=== PATIENT | female | born 1975 ===

== ENCOUNTER 2020-01-28 13:55 | Outpatient (REF) | payer OTHER, SELFPAY ==
--- NOTE | 2020-01-28 | MM_ITS ---
EXAMINATION: MM DIAGNOSTIC DIGITAL BREAST TOMOSYNTHESIS, BILATERAL US DIAGNOSTIC ULTRASOUND BREAST, BILATERAL CLINICAL INFORMATION: Chronic bilateral milky discharge right greater than left for years. The lifetime risk of breast cancer based on the Tyrer-Cuzick Model is 7%. COMPARISON: Mammography: 04/02/2018, 10/17/2015; bilateral breast ultrasound 04/02/2018, MRI brain 08/14/2018. TECHNIQUE: Digital breast tomosynthesis is performed in both the craniocaudal and mediolateral oblique views along with computer-aided detection (CAD). Synthesized 2D images are generated from the tomosynthesis. Additional exaggerated right CC view is provided. Targeted bilateral breast ultrasound is performed retroareolar and periareolar bilateral breasts. Grayscale imaging and color Doppler are performed. FINDINGS: There are scattered areas of fibroglandular density (ACR BI-RADS breast composition Category b). Parenchymal pattern is similar to prior studies. There is low left axillary tail node again demonstrated. Neither breast shows interval mass or architectural abnormality or abnormal calcifications. No interval duct ectasia. Bilateral targeted breast ultrasound demonstrates no cystic or solid mass or architectural abnormality or focal duct ectasia. Results are discussed with the patient at time of visit. Patient's chronic bilateral bulky nipple discharge may be related to systemic cause. 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 IMPRESSION: 1. No mammographic evidence of malignancy. No significant changes from prior studies. 2. Unremarkable bilateral targeted breast ultrasound. ASSESSMENT: BI-RADS 1: Negative RECOMMENDATION: 1. Patient should be managed based on the clinical impression. Recommend correlation with laboratories for systemic endocrine etiology of bilateral nipple discharge. 2. Otherwise, routine annual screening mammography. This patient's information was entered into a reminder system with a target due date for their next mammogram.
== END 2020-01-28 13:56 | disposition home or self-care (01) ==
LOC: HO.MAMMO 13:55
PROVIDERS: PCP Internal Medicine; Visit Provider Internal Medicine
DX: N64.52 Nipple discharge (principal)
CPT/HCPCS: 76642; 77062; 77066; 78013

== ENCOUNTER 2020-03-09 15:30 | Outpatient (REF) | payer OTHER, SELFPAY | END 2020-03-09 15:31 | disposition home or self-care (01) | LOC: HO.LAB 15:30 | PROVIDERS: PCP Internal Medicine; Visit Provider Surgery | DX: L72.0 Epidermal cyst (principal); Z79.899 Other long term (current) drug therapy | CPT/HCPCS: 11402; 88307 ==

== ENCOUNTER 2020-03-21 14:18 | Emergency (ER) | payer OTHER, SELFPAY ==
[2020-03-21 15:04] VITALS: BP 116/62; PULSE 72; RESP 20; TEMP 36.9; O2SAT 97; BMI 28.2
--- NOTE | 2020-03-21 15:30 | XR_ITS ---
EXAMINATION: XR FOOT , RIGHT CLINICAL INFORMATION: Pain. Injury. COMPARISON: Previous ankle x-ray May 2019 TECHNIQUE: AP, lateral, and oblique views of the right foot. FINDINGS: Bone alignment is normal. No acute fracture or dislocation is seen. There is an old healed fracture of the distal fibular shaft. There are degenerative changes at the anterior tibiotalar joint. There is a plantar calcaneal spur. XR/XR foot RT min 3V IMPRESSION: No acute fracture is seen.
--- NOTE | 2020-03-21 15:39 | ED_ITS ---
HPI - Extremity Injury (Lower) General Chief Complaint: Extremity Injury, Lower Stated Complaint: foot injury Time Seen by Provider: 03/21/20 15:16 Source: patient Mode of arrival: ambulatory Limitations: no limitations History of Present Illness HPI Narrative: Presenting ambulatory with limp with complaint of pain to the right foot after stepping the foot against door/furniture at home. Occurred prior to arrival. No other injury. No fall. No ankle or knee pain. Onset (ago): minute(s) Injury: Right: foot Place: home Relieving factors: nothing Exacerbating factors: nothing Context: direct blow Other symptoms: none Treatments prior to arrival: cold therapy Related Data Home Medications Medication Instructions Recorded Confirmed butalbital 25 mg-acetaminophen 325 2 tab PO Q4H PRN 03/03/20 03/13/20 mg tablet escitalopram oxalate 10 mg tablet 10 mg PO DAILY 03/03/20 03/13/20 Previous Rx's Medication Instructions Recorded ciclopirox 0.77 % topical cream 1 applic TOPICAL BID 28 Days #30 g 03/03/20 cyclobenzaprine 10 mg tablet 10 mg PO BEDTIME 14 Days #14 tab 03/03/20 ibuprofen 800 mg tablet 800 mg PO BID PRN 10 Days #20 tab 03/03/20 ibuprofen 800 mg PO Q8H PRN #20 tab 03/21/20 Allergies Allergy/AdvReac Type Severity Reaction Status Date / Time No Known Allergies Allergy Verified 03/01/20 06:23 [No Known Allergies*] Review of Systems Review of Systems: Constitutional: No Weight loss, No Fever, No Chills, No Night Sweats, No Fatigue, No Malaise ENT/Mouth: No Hearing loss, No Ear Pain, No Nasal Congestion, No Sinus Pain Eyes: No Eye Pain, No Swelling, No Redness, No Foreign Body, No Discharge, No Vision Changes Cardiovascular: No Chest Pain, No SOB, No Dyspnea on Exertion, No Orthopnea, No Edema, No Palpitations Respiratory: No Cough, No Sputum, No Wheezing, No Smoke Exposure, No Dyspnea Musculoskeletal: No joint pain, No Myalgias, No Joint Swelling Skin: No Skin Lesions, No rash Neuro: No Weakness, No Numbness, No Paresthesias Psych: No Social Issues Heme/Lymph: No Bruising, No Bleeding,No Lymphadenopathy Endocrine: No Polyuria, No Polydipsia, No Temperature Intolerance [facility] Past Medical History Medical History (Updated 03/21/20 @ 16:12 by Cristóbal Arzate NP) Acute carpal tunnel syndrome COVID-19 ruled out Nail fungus Surgical History History of tubal ligation History of umbilical hernia repair Family History Family History Father Medical history unknown Mother Uterine cancer Maternal Aunt Hypertension Maternal Grandfather Hypertension Diabetes Social History Social History Advance Directives: No Advance Directives Information Provided: Yes Physical Exam Vital Signs: Vital Signs: Last Vital Signs Temp 98.4 F 03/21/20 15:04 Pulse 72 03/21/20 15:04 Resp 20 03/21/20 15:04 BP 116/62 03/21/20 15:04 Pulse Ox 97 03/21/20 15:04 Body Mass Index 28.2 Reviewed Const: General: cooperative and healthy appearing; No acute distress or intoxicated appearing Nutritional Appearance: average body habitus Orientation/consciousness: patient oriented x3 Chest: Chest palpation & inspection: normal inspection of the chest Resp: Effort & Inspection: normal respiratory effort Cardio: Jugular venous distension: no JVD Skin: General skin exam: no rashes or lesions noted Neuro: General: patient oriented x3 Extrem: Other: Dorsum of the right foot distally at the mid to distal foot there is some ecchymosis and mild swelling. General: Yes normal to inspection MDM - Extremity Injury (Lower) Medical Records Attestation: I reviewed the patient's medical records. Lab Data Attestation: I reviewed the patient's lab results. Imaging Data Right foot x-ray: Attestation: I personally reviewed and interpreted this imaging study as follows: Radiologist's impression: Report reviewed from radiology down time she given to me by read text Report read of right foot x-ray by Dr. Pardo as negative for acute fracture Discharge Plan Discharge Clinical Impression: Contusion of foot Qualifiers: Encounter type: initial encounter Laterality: right Qualified Code(s): S90.31XA - Contusion of right foot, initial encounter Patient Disposition: Home, Self-Care Instructions: Foot Contusion (ED) Additional Instructions: The x-ray of the foot did not show any acute fracture You have a bruise to the foot Elevate Ice Ibuprofen for pain discomfort as prescribed Use foot wrap/shoe as given Return if any concerns worsening symptoms Thank you Prescriptions: New ibuprofen 800 mg tablet 800 mg PO Q8H PRN (Reason: pain) Qty: 20 RF: 0 No Action butalbital-acetaminophen 25-325 mg tablet 2 tab PO Q4H PRNRF: 0 escitalopram oxalate 10 mg tablet 10 mg PO DAILY RF: 0 ibuprofen [IBU] 800 mg tablet 800 mg PO BID PRN (Reason: pain) 10 Days Qty: 20 RF: 0 cyclobenzaprine 10 mg tablet 10 mg PO BEDTIME 14 Days Qty: 14 RF: 0 ciclopirox 0.77 % cream 1 applic topical BID 28 Days Qty: 30 RF: 0 Referrals: Vianca Zelaya MD [Primary Care Provider] - 1 week Stand Alone Forms: Work/School Release Interventions: ED Discharge Assessment Last Done: 03/21/20 16:24 Discharge Date/Time: 03/21/20 16:25
== END 2020-03-21 16:25 | disposition home or self-care (01) ==
PROVIDERS: Emergency Provider Internal Medicine; PCP Internal Medicine
DX: S90.31XA Contusion of right foot, initial encounter (principal); M79.671 Pain in right foot; Y29.XXXA Contact with blunt object, undetermined intent, initial encounter; Y93.9 Activity, unspecified; Y92.009 Unspecified place in unspecified non-institutional (private) residence as the place of occurrence of the external cause; Y99.9 Unspecified external cause status; Z79.899 Other long term (current) drug therapy
CPT/HCPCS: 73630; 99283

== ENCOUNTER → 2020-03-22 15:45 | Outpatient (BNVA) | payer OTHER, SELFPAY | PROVIDERS: PCP Internal Medicine; Visit Provider Surgery | DX: L72.0 Epidermal cyst (principal); Z20.828 Contact with and (suspected) exposure to other viral communicable diseases | CPT/HCPCS: 99212 ==

== ENCOUNTER 2020-05-19 13:13 | Outpatient (REF) | payer OTHER, SELFPAY ==
--- NOTE | 2020-05-19 | MR_ITS ---
EXAMINATION: MR BRAIN WITHOUT AND WITH CONTRAST CLINICAL INFORMATION: Pituitary microadenoma. COMPARISON: Brain MRI 08/14/2018. TECHNIQUE: Multiplanar, multisequence imaging of the brain was performed before and after the intravenous administration of 4 mL of Gadavist. FINDINGS: There is an ill-defined focus of hypoenhancement within the right inferolateral aspect of the pituitary gland measuring approximately 4 mm but is less well-defined than on the prior exam from 08/14/2018. The overall morphology of the pituitary gland appears similar compared with prior. The posterior pituitary bright spot is present. The infundibulum is not abnormally thickened and inserts near the midline. The cavernous sinuses demonstrate symmetric enhancement. The optic apparatus appears normal. There is no acute infarction, hemorrhage, mass, or extra-axial fluid collection. The brain parenchyma signal appears normal. The ventricles are normal in size and configuration without evidence of hydrocephalus. The major arterial flow voids are preserved at the skull base. The orbital contents appear normal. MR/MR head/brain wo/w con IMPRESSION: The previously noted hypoenhancing lesion in the right inferolateral aspect of the pituitary gland is now less well-defined measuring approximately 4 mm, previously 5 mm. No new or acute intracranial findings.
== END 2020-05-19 13:14 | disposition home or self-care (01) ==
LOC: HO.MRI 13:13
PROVIDERS: Visit Provider Internal Medicine Endocrinology, Diabetes & Metabolism
DX: D35.2 Benign neoplasm of pituitary gland (principal)
CPT/HCPCS: 70553; A9585

== ENCOUNTER → 2020-07-29 14:27 | Outpatient (BNVA) | payer OTHER, SELFPAY | PROVIDERS: PCP Internal Medicine; Visit Provider Internal Medicine Endocrinology, Diabetes & Metabolism | DX: D35.2 Benign neoplasm of pituitary gland (principal); E55.9 Vitamin D deficiency, unspecified | CPT/HCPCS: 99212 ==

== ENCOUNTER 2020-08-04 17:01 | Emergency (ER) | payer OTHER, SELFPAY ==
--- NOTE | ~2020-08-04 | XR_ITS ---
EXAMINATION: XR ANKLE, RIGHT CLINICAL INFORMATION: Pain and swelling. History of old injury. COMPARISON: Right ankle 06/19/2019 TECHNIQUE: AP, lateral, and mortise views of the right ankle. FINDINGS: Previous is seen fracture of the distal fibula shows evidence of progressive healing of the fracture line remains partially radiolucent. There is endosteal healing of the fracture. No change in the alignment of the fracture fragments. Mild disuse osteopenia of the distal tibia and the talus. There is a corticated osseous fragment at the anterior ankle joint measuring about 6 mm there is likely an intra-articular loose body. This is apparent on the lateral view. No acute fracture or dislocation. Ankle mortise remains congruent. Large plantar calcaneal spur. XR/XR ankle RT min 3V IMPRESSION: 1. Healing fracture of the distal right fibula. 2. Intra-articular loose body of the anterior ankle joint. 3. No acute osseous abnormalities. 4. Large plantar calcaneal spur.
[2020-08-04 17:30] VITALS: BP 120/78; PULSE 86; RESP 18; TEMP 37.3; O2SAT 96; BMI 27.7
--- NOTE | 2020-08-04 20:14 | ED.EXTPRO ---
HPI - Extremity Problem General Chief complaint: Extremity Problem Stated complaint: leg pain Time Seen by Provider: 08/04/20 19:56 Related Data Home Medications Medication Instructions Recorded Confirmed butalbital 25 mg-acetaminophen 325 2 tab PO Q4H PRN 03/03/20 07/29/20 mg tablet escitalopram oxalate 10 mg tablet 10 mg PO DAILY 03/03/20 07/29/20 Previous Rx's Medication Instructions Recorded ciclopirox 0.77 % topical cream 1 applic TOPICAL BID 28 Days #30 g 03/03/20 cyclobenzaprine 10 mg tablet 10 mg PO BEDTIME 14 Days #14 tab 03/03/20 ibuprofen 800 mg tablet 800 mg PO BID PRN 10 Days #20 tab 03/03/20 ibuprofen 800 mg PO Q8H PRN #20 tab 03/21/20 cholecalciferol (vitamin D3) 50 50 mcg PO DAILY 30 Days #30 cap 07/29/20 mcg (2,000 unit) capsule ibuprofen 800 mg PO Q8H PRN #30 tab 08/04/20 Allergies Allergy/AdvReac Type Severity Reaction Status Date / Time No Known Allergies Allergy Verified 08/04/20 17:29 [No Known Allergies*] [facility] Past Medical History Medical History (Updated 08/04/20 @ 20:15 by Cristóbal Arzate NP) Acute carpal tunnel syndrome COVID-19 ruled out Hand pain, right Nail fungus Pituitary microadenoma Vitamin D deficiency Surgical History History of tubal ligation History of umbilical hernia repair Family History Family History Father Medical history unknown Mother Uterine cancer Maternal Aunt Hypertension Maternal Grandfather Hypertension Diabetes Social History Social History Alcohol intake: never Smoked in Last 30 Days: No Use of substances other than those prescribed or required for medical reasons: No Advance Directives: No Advance Directives Information Provided: No Physical Exam Vital Signs: Vital Signs: Last Vital Signs Temp 99.1 F 08/04/20 17:30 Pulse 86 08/04/20 17:30 Resp 18 08/04/20 17:30 BP 120/78 08/04/20 17:30 Pulse Ox 96 08/04/20 17:30 Body Mass Index 27.7 Course Reevaluation(s) Reevaluation #1: Chronic pain for surgery for past year since things, no acute findings on exam. Neurovascular intact, Homans negative. Pain more after long day on her feet and walking a lot. Will give her crutches for p.r.n. use and has orthopedic follow-up on the 15 of August. MDM - Extremity (Nontraumatic) Imaging Data Ankle x-ray: Radiologist's impression: [address] [id number] ReportSigned Patient: Xiao RajputMR#: [id number]: [id number]:[id number]/Sex: 45 / FADM Date: 08/04/20Loc: EDAttending Dr: Ordering Physician: Generic ED Physician Date of Service: 08/04/20 Procedure(s): XR ankle RT min 3V Accession Number(s): [id number] cc: Generic ED Physician~ EXAMINATION: XR ANKLE, RIGHT CLINICAL INFORMATION: Pain and swelling. History of old injury. COMPARISON: Right ankle 06/19/2019 TECHNIQUE: AP, lateral, and mortise views of the right ankle. FINDINGS: Previous is seen fracture of the distal fibula shows evidence of progressive healing of the fracture line remains partially radiolucent. There is endosteal healing of the fracture. No change in the alignment of the fracture fragments. Mild disuse osteopenia of the distal tibia and the talus. There is a corticated osseous fragment at the anterior ankle joint measuring about 6 mm there is likely an intra-articular loose body. This is apparent on the lateral view. No acute fracture or dislocation. Ankle mortise remains congruent. Large plantar calcaneal spur. XR/XR ankle RT min 3V IMPRESSION: 1. Healing fracture of the distal right fibula. 2. Intra-articular loose body of the anterior ankle joint. 3. No acute osseous abnormalities. 4. Large plantar calcaneal spur. Dictated By:WU PARK MDSigned By:<Electronically signed by WU PARK MD in OV>08/04/201912 DD/ [id number]/TT: Quality Systems Technician: JAYME Discharge Plan Discharge Clinical Impression: Chronic ankle pain Patient Disposition: Home, Self-Care Instructions: Arthralgia (ED) Additional Instructions: Follow-up with orthopedic doctor as planned Take ibuprofen alternated Tylenol as needed for pain discomfort Return if any concerns or worsening symptoms Thank you Prescriptions: New ibuprofen 800 mg tablet 800 mg PO Q8H PRN (Reason: pain) Qty: 30 RF: 0 No Action ibuprofen 800 mg tablet 800 mg PO Q8H PRN (Reason: pain) Qty: 20 RF: 0 butalbital-acetaminophen 25-325 mg tablet 2 tab PO Q4H PRNRF: 0 escitalopram oxalate 10 mg tablet 10 mg PO DAILY RF: 0 ibuprofen [IBU] 800 mg tablet 800 mg PO BID PRN (Reason: pain) 10 Days Qty: 20 RF: 0 cyclobenzaprine 10 mg tablet 10 mg PO BEDTIME 14 Days Qty: 14 RF: 0 ciclopirox 0.77 % cream 1 applic topical BID 28 Days Qty: 30 RF: 0 cholecalciferol (vitamin D3) 50 mcg (2,000 unit) capsule 50 mcg PO DAILY 30 Days Qty: 30 RF: 11 Referrals: Gary Tenorio MD [Physician] - 2 weeks Vianca Zelaya MD [Primary Care Provider] - 1 week Stand Alone Forms: Work/School Release
--- NOTE | 2020-08-04 20:40 | PC.NURSE ---
DENI GARCIA USE WALKING BOOT INSTEAD OF CRUTCHES.
== END 2020-08-04 20:41 | disposition home or self-care (01) ==
PROVIDERS: Emergency Provider Internal Medicine; PCP Internal Medicine
DX: G89.29 Other chronic pain (principal); M25.571 Pain in right ankle and joints of right foot
CPT/HCPCS: 73610; 99283; 99284

== ENCOUNTER → 2020-08-15 14:16 | Outpatient (BNVA) | payer OTHER, SELFPAY | PROVIDERS: PCP Internal Medicine; Visit Provider Physician Assistant | DX: S93.401D Sprain of unspecified ligament of right ankle, subsequent encounter (principal) | CPT/HCPCS: 99212 ==

== ENCOUNTER 2020-12-12 12:41 | Emergency (ER) | payer OTHER, SELFPAY ==
--- NOTE | ~2020-12-12 | XR_ITS ---
EXAMINATION: XR CHEST CLINICAL INFORMATION: Cough and headache. COMPARISON: None TECHNIQUE: Frontal view of the chest was obtained. FINDINGS: No significant abnormality is noted involving the heart, lungs, mediastinum, bony thorax or soft tissues. XR/XR chest 1V IMPRESSION: Unremarkable chest examination.
[2020-12-12 13:45] VITALS: BP 143/88; PULSE 84; RESP 16; TEMP 36.8; O2SAT 97; BMI 28.2
[2020-12-12 14:20] LABS: Strep A Nucleic Acid Negative (Negative)
--- NOTE | 2020-12-12 14:42 | ED.URI ---
HPI - URI/Sore Throat General Chief Complaint: Upper Respiratory Symptoms Stated Complaint: cough flu like symptoms Time Seen by Provider: 12/12/20 13:52 Source: patient Mode of arrival: ambulatory Limitations: no limitations History of Present Illness HPI Narrative: 45-year-old female presenting to the ED with complaints of 3 days of body aches, subjective fevers, chills, intermittent headaches, sore throat, nasal congestion/rhinorrhea and dry cough. Reports that she received 1 of her 2 COVID vaccines. Denies recent travel or sick contacts. Denies any measured fevers, dizziness, neck pain/stiffness, chest pain or shortness of breath, dyspnea on exertion, orthopnea, palpitations, nausea/vomiting/diarrhea/constipation, abdominal pain, back pain, dysuria, hematuria or any other symptoms complete to concerns at this time. MD elicited complaint: fever, cough, sore throat, rhinorrhea and nasal congestion Onset (ago): day(s) (Three days worse today) Consistency: constant and progressively worsening Severity: moderate Description of mucous: clear, watery and yellow Able to tolerate fluids by mouth: Yes Exacerbating factors: swallowing Relieving factors: nothing Associated symptoms: fever, chills, myalgias, headache, rhinorrhea, nasal congestion, sore throat and cough Treatments prior to arrival: none Related Data Home Medications Medication Instructions Recorded Confirmed butalbital 25 mg-acetaminophen 325 2 tab PO Q4H PRN 03/03/20 07/29/20 mg tablet escitalopram oxalate 10 mg tablet 10 mg PO DAILY 03/03/20 07/29/20 Previous Rx's Medication Instructions Recorded ciclopirox 0.77 % topical cream 1 applic TOPICAL BID 28 Days #30 g 03/03/20 cyclobenzaprine 10 mg tablet 10 mg PO BEDTIME 14 Days #14 tab 03/03/20 ibuprofen 800 mg tablet (IBU) 800 mg PO BID PRN 10 Days #20 tab 03/03/20 ibuprofen 800 mg tablet 800 mg PO Q8H PRN #20 tab 03/21/20 cholecalciferol (vitamin D3) 50 50 mcg PO DAILY 30 Days #30 cap 07/29/20 mcg (2,000 unit) capsule ibuprofen 800 mg tablet 800 mg PO Q8H PRN #30 tab 08/04/20 acetaminophen 500 mg tablet 1,000 mg PO QID PRN #14 tab 12/12/20 (Tylenol Extra Strength) albuterol sulfate 90 mcg/actuation 1 inh INHALATION QID PRN #8.5 g 12/12/20 aerosol inhaler azithromycin 250 mg tablet See Rx Instructions .ROUTE 12/12/20 .COMPLEX #6 tab codeine 10 mg-guaifenesin 100 mg/5 5 ml PO Q6H PRN #120 ml 12/12/20 mL oral liquid (Guaifenesin AC) ibuprofen 800 mg tablet 800 mg PO Q8H PRN #14 tab 12/12/20 Allergies Allergy/AdvReac Type Severity Reaction Status Date / Time No Known Allergies Allergy Verified 08/04/20 17:29 [No Known Allergies*] Review of Systems Review of Systems: Constitutional : Positive fevers/chills/fatigue/malaise ENT/Mouth : Positive sore throat/nasal congestion/rhinorrhea Eyes: No Discharge Cardiovascular : No Chest Pain, No SOB Respiratory : Positive Cough, No Sputum, No Wheezing, No Smoke Exposure, No Dyspnea Gastrointestinal : No Nausea, No Vomiting, No Diarrhea Genitourinary : No irregular bleeding, No Dysuria, No Urinary Frequency, No Hematuria, No Urinary Incontinence, No Urgency, No Flank Pain, Musculoskeletal : No Myalgia Skin : No rash Neuro : No Headache Yes all other systems are reviewed and are negative [facility] Past Medical History Attestation statement: The following information was validated with the patient. Medical History Acute carpal tunnel syndrome COVID-19 ruled out Hand pain, right Nail fungus Pituitary microadenoma Vitamin D deficiency Surgical History History of tubal ligation History of umbilical hernia repair Family History Family History Father Medical history unknown Mother Uterine cancer Maternal Aunt Hypertension Maternal Grandfather Hypertension Diabetes Social History Social History Alcohol intake: never Advance Directives: No Advance Directives Information Provided: No Patient : No Physical Exam Vital Signs: Vital Signs: Last Vital Signs Temp 98.3 F 12/12/20 13:45 Pulse 84 12/12/20 13:45 Resp 16 12/12/20 13:45 BP 143/88 H 08/23/21 13:45 Pulse Ox 97 12/12/20 13:45 Body Mass Index 28.2 vital signs have been reviewed as normal and appeared to be correct. Blood pressure mildly hypertensive 143/88 Heart rate normal. Respiration rate normal. Temperature normal. Oxygen saturation normal. Appearance: Alert. Oriented X3. No acute distress. Head: Normal external exam. Normocephalic. Atraumatic. Eyes: PERRLA. EOMI. Conjunctiva and sclera normal. Eyelids normal. ENT: EAC normal. TM's Normal. Posterior pharynx mildly erythematous. No exudate noted. Uvula midline. Moist mucous membranes. No trismus noted. No drooling noted. No muffled voice noted. Neck: Normal inspection. Neck supple. FROM. No adenopathy. Thyroid Normal. No meningeal signs. No neck mass noted. CVS: Normal heart rate and rhythm. Heart sound normal. Pulses normal throughout. No murmurs/rales/gallops. Respiratory: No respiratory distress. Painless inspiration. Breath sounds normal. No wheezes/rales/rhonchi noted. Chest nontender. No accessory muscle usage noted or decreased air movement noted. Back: Full range of motion noted. No rashes/lesion/induration/fluctuance or signs of infection noted. Skin: Skin warm and dry. Normal skin color. Normal skin turgor. No rashes/lesions/lacerations noted. Extremities: Extremities exhibit normal range of motion. Extremities nontender. Neuro: Oriented X 3. No motor deficit. No sensory deficit. Reflexes normal. Normal steady gait. No focal neuro deficits noted. Vascular: + radial pulses/+ 2 distal pedal pulses/+2 dorsalis pedis b/l. Normal cap refill. No cyanosis noted to upper extremity nails and lower extremity toes nails. Course Course Course Narrative: 45-year-old female presenting to the ED with complaints of 3 days of body aches, subjective fevers, chills, intermittent headaches, sore throat, nasal congestion/rhinorrhea and dry cough. Reports that she received 1 of her 2 COVID vaccines. Denies recent travel or sick contacts. Rapid strep negative. X-ray obtained and negative. COVID/RSV/flu pending at this time. Will DC home with antibiotics and symptomatic treatment and will call her if her results are positive within the next 2-4 hours. Along with instructions to follow-up with her primary care provider and to return if any new or worsening symptoms. Patient understands agrees with this plan. MDM - URI/Sore Throat Medical Records Attestation: I reviewed the patient's medical records. Lab Data Attestation: I reviewed the patient's lab results. Labs: Lab Results 12/12/20 Range/Units 14:00 S. pyogenes GrpA SCARLET Negative (Negative) Imaging Data Chest x-ray: Attestation: I personally reviewed and interpreted this imaging study as follows: Radiologist's impression: FINDINGS: No significant abnormality is noted involving the heart, lungs, mediastinum, bony thorax or soft tissues. XR/XR chest 1V IMPRESSION: Unremarkable chest examination. Discharge Plan Discharge Clinical Impression: Upper respiratory infection Patient Disposition: Home, Self-Care Instructions: Upper Respiratory Infection (ED) Additional Instructions: Based on your symptoms and history we have sent a COVID-19. Although your RESULT IS PENDING at this time. RESULTS should return within 2-4 hours. At this time you will be contacted with either NEGATIVE OR POSITIVE results. -Please wait until we contact you for your results. At this time you will be okay for discharge. Please plan for self quarantine for up to 14 days. Do not expose yourself to others. You may not go to work. If testing does come back negative you may return to activities as long as you are no longer having any symptoms for at least 3 days. Please continue to follow cold instructions and wash your hands frequently. You may take Tylenol as directed on the bottle for pain or fever. Patient seen in the emergency department on 12/12/2020 and should be excused from work until negative test results AND until 72 hours without any symptoms AND at least 10 days have passed since symptoms first appeared or since last exposure to COVID-19 positive patient CDC Guidelines for home isolation: - Stay away from others - WEAR A MASK if you are sick AND STAY HOME - Cover your mouth and nose with a tissue when you cough or sneeze. Dispose of tissues in a lined trash can and wash your hands immediately with soap and water for at least 20 seconds. If soap and water are not available, clean hands with alcohol-based hand mortgage counselor that contains at least 60% alcohol. - Clean your hands often with soap and water for at least 20 seconds - Avoid touching your eyes, nose and mouth with unwashed hands - Do not share dishes, drinking glasses, cups, eating utensils, towels, or bedding with other people in your home. After using these items, wash them thoroughly with soap and water or put in the jewel bearing grinder. - Clean high-touch surfaces in your isolation area ( sick room and bathroom) every day; let a caregiver clean and disinfect high-touch surfaces in other areas of the home. Clean the area or item with soap and water or another detergent if it is dirty. Then, use a household disinfectant. - Limit contact with pets and animals: If you must care for a pet, wash your hands before and after interacting with them). Prescriptions: New albuterol sulfate 90 mcg/actuation HFA aerosol inhaler 1 inh inhalation QID PRN (Reason: shortness of breath or wheezing) Qty: 8.5 RF: 0 azithromycin 250 mg tablet See Rx Instructions .ROUTE .COMPLEX Qty: 6 RF: 0 codeine-guaifenesin [Guaifenesin AC] 10-100 mg/5 mL liquid 5 ml PO Q6H PRN (Reason: cold symptoms) Qty: 120 RF: 0 ibuprofen 800 mg tablet 800 mg PO Q8H PRN (Reason: pain) Qty: 14 RF: 0 acetaminophen [Tylenol Extra Strength] 500 mg tablet 1,000 mg PO QID PRN (Reason: fever or pain) Qty: 14 RF: 0 No Action ibuprofen 800 mg tablet 800 mg PO Q8H PRN (Reason: pain) Qty: 20 RF: 0 ibuprofen 800 mg tablet 800 mg PO Q8H PRN (Reason: pain) Qty: 30 RF: 0 butalbital-acetaminophen 25-325 mg tablet 2 tab PO Q4H PRNRF: 0 escitalopram oxalate 10 mg tablet 10 mg PO DAILY RF: 0 ibuprofen [IBU] 800 mg tablet 800 mg PO BID PRN (Reason: pain) 10 Days Qty: 20 RF: 0 cyclobenzaprine 10 mg tablet 10 mg PO BEDTIME 14 Days Qty: 14 RF: 0 ciclopirox 0.77 % cream 1 applic topical BID 28 Days Qty: 30 RF: 0 cholecalciferol (vitamin D3) 50 mcg (2,000 unit) capsule 50 mcg PO DAILY 30 Days Qty: 30 RF: 11 Referrals: Vianca Zelaya MD [Primary Care Provider] - 2 days Print Language: Chinese
[2020-12-12 15:36] LABS: Influenza A PCR NEGATIVE (Negative); Influenza B PCR NEGATIVE (Negative); Resp Syncy Virus RNA Qual PCR NEGATIVE (Negative); SARS COV2 PCR INHOUSE NEGATIVE (Negative)
== END 2020-12-12 15:05 | disposition home or self-care (01) ==
PROVIDERS: Physician Assistant Medical; Emergency Provider Emergency Medicine; PCP Internal Medicine
DX: J06.9 Acute upper respiratory infection, unspecified (principal); R05 Cough; R50.9 Fever, unspecified; M79.10 Myalgia, unspecified site; R51.9 Headache, unspecified; Z20.822 Contact with and (suspected) exposure to COVID-19; Z79.899 Other long term (current) drug therapy
CPT/HCPCS: 0241U; 36415; 71045; 87651; 99283

== ENCOUNTER 2021-04-19 08:12 | Outpatient (REF) | payer OTHER, SELFPAY | END 2021-04-19 08:13 | disposition home or self-care (01) | LOC: HO.HMGCLDS 08:12 | PROVIDERS: Visit Provider Internal Medicine | DX: Z20.822 Contact with and (suspected) exposure to COVID-19 (principal) | CPT/HCPCS: C9803; U0003; U0005 ==

== ENCOUNTER 2021-05-29 08:32 | Outpatient (REF) | payer OTHER, SELFPAY ==
[2021-05-29 08:58] LABS: Hematocrit 40.6 % (37.0-47.0); Hemoglobin 13.2 g/dl (12.0-16.0); Mean Corpuscular HGB Conc 32.5 g/dl (31.0-35.0); Mean Corpuscular Hemoglobin 31.7 pg (27.0-33.0); Mean Corpuscular Volume 97.6 fL (80.0-98.0); Platelet Count 287 X10*3/uL (160-400); Red Blood Count 4.16 X10*6/uL (4.20-5.50); White Blood Count 7.1 X10*3/uL (4.8-10.8)
[2021-05-29 09:21] LABS: Anion Gap 9 (12-20); Blood Urea Nitrogen 12 mg/dL (9-16); Carbon Dioxide 28 mmol/L (22-29); Chloride 106 mmol/L (96-108); Cholesterol 176 mg/dL; Estimated Glomerular Filt Rate > 60; Glucose Fasting 98 mg/dL (60-99); HDL Cholesterol 55 mg/dL; LDL Cholesterol Calculated 96 mg/dl; Potassium 4.3 mmol/L (3.3-5.1); Sodium 139 mmol/L (135-145); Triglycerides 128 mg/dL
[2021-05-29 09:36] LABS: Free T4 (Free Thyroxine) 1.18 ng/dL (0.71-1.85); Vitamin D 25-OH Total 9.6 ng/mL (>30)
[2021-06-01 01:07] LABS: Follicle Stimulating Hormone 15.1 mIU/mL; Lutenizing Hormone 28.9 mIU/mL; Prolactin 16.1 ng/mL
[2021-06-01 10:16] LABS: TS Negative Control Passed; TS Panel A 0; TS Panel B 0; TS Positive Control Passed; TSpotTB Negative (Negative)
[2021-06-02 11:07] LABS: Adrenocorticotropic Hormone 22 pg/mL (6-50)
[2021-06-04 16:55] LABS: IGF-1 (Somatomedin C) 163 ng/mL (52-328); IGF-1 Z Score (Female) 0.3 SD (-2.0 - +2.0)
[2021-06-05 03:46] LABS: Estradiol Free 1.91 pg/mL; Estradiol, Ultrasensitive 101 pg/mL
== END 2021-05-29 08:33 | disposition home or self-care (01) ==
LOC: HO.LAB 08:32
PROVIDERS: Absent Provider Internal Medicine Endocrinology, Diabetes & Metabolism; PCP Internal Medicine; Visit Provider Nurse Practitioner Family
DX: Z00.00 Encounter for general adult medical examination without abnormal findings (principal); Z11.1 Encounter for screening for respiratory tuberculosis; E78.00 Pure hypercholesterolemia, unspecified; Z83.3 Family history of diabetes mellitus; D35.2 Benign neoplasm of pituitary gland
CPT/HCPCS: 36415; 80048; 80061; 82024; 82306; 82670; 82681; 83001; 83002; 84146; 84305; 84439; 84443; 85027; 86481

== ENCOUNTER 2021-06-05 13:38 | Outpatient (REF) | payer OTHER, SELFPAY ==
[2021-06-05 14:04] LABS: Binax Internal Control QC Valid; Binax Now Covid-19 Ag Negative (Negative)
== END 2021-06-05 13:39 | disposition home or self-care (01) ==
LOC: HO.HMGCLDS 13:38
PROVIDERS: PCP Internal Medicine Cardiovascular Disease; Visit Provider Physician Assistant
DX: Z13.89 Encounter for screening for other disorder (principal)

== ENCOUNTER 2021-06-21 15:10 | Outpatient (REF) | payer OTHER, SELFPAY ==
[2021-06-22 11:37] LABS: CT PCR NOT DETECTED (Not Detect.); NG PCR NOT DETECTED (Not Detect.)
[2021-06-22 13:35] LABS: BV Int Neg Control Negative (Negative); BV Int Pos Control Positive (Positive)
== END 2021-06-21 15:11 | disposition home or self-care (01) ==
LOC: HO.LAB 15:10
PROVIDERS: Advanced Practice Midwife; PCP Internal Medicine Cardiovascular Disease; Visit Provider Obstetrics & Gynecology
DX: Z11.3 Encounter for screening for infections with a predominantly sexual mode of transmission (principal); R10.2 Pelvic and perineal pain; Z20.2 Contact with and (suspected) exposure to infections with a predominantly sexual mode of transmission; R31.9 Hematuria, unspecified
CPT/HCPCS: 81025; 87480; 87491; 87510; 87591; 87660; 99212

== ENCOUNTER 2021-06-26 08:37 | Outpatient (REF) | payer OTHER, SELFPAY ==
--- NOTE | ~2021-06-26 | XR_ITS ---
EXAMINATION: XR ankle RT min 3V CLINICAL INFORMATION: Pain COMPARISON: Ankle radiographs 08/04/2020 TECHNIQUE: 3 views of the ankle XR/XR ankle RT min 3V FINDINGS/IMPRESSION: No acute fracture or dislocation. Redemonstration of the healed fracture of the distal fibular diaphysis. Joint spaces are maintained. Osseous fragments anterior to the tibiotalar joint space may reflect loose bodies similar to prior. Large plantar calcaneal spur. No joint effusion. Soft tissues are unremarkable.
== END 2021-06-26 08:38 | disposition home or self-care (01) ==
LOC: HO.HOSX 08:37
PROVIDERS: Visit Provider Physician Assistant
DX: M76.71 Peroneal tendinitis, right leg (principal); M21.41 Flat foot [pes planus] (acquired), right foot; M21.42 Flat foot [pes planus] (acquired), left foot
CPT/HCPCS: 73610; 99212

== ENCOUNTER 2021-07-12 11:56 | Outpatient (REF) | payer OTHER, SELFPAY ==
--- NOTE | ~2021-07-12 | XR_ITS ---
EXAMINATION: XR HAND, LEFT CLINICAL INFORMATION: Pain in the left hand. COMPARISON: None TECHNIQUE: PA, lateral, and oblique views of the left hand. FINDINGS: First carpometacarpal joint: There is nonuniform joint space narrowing with marginal osteophytes and subchondral cystic change indicative of at least [id number] osteoarthritis. The remaining bones, joints and soft tissues are normal. XR/XR hand LT min 3V IMPRESSION: Osteoarthritis of the 1st carpometacarpal joint.
== END 2021-07-12 11:57 | disposition home or self-care (01) ==
LOC: HO.HOSX 11:56
PROVIDERS: Visit Provider Physician Assistant
DX: M18.9 Osteoarthritis of first carpometacarpal joint, unspecified (principal)
CPT/HCPCS: 20600; 73130; 99212; J1020

== ENCOUNTER 2021-07-13 15:43 | Outpatient (REF) | payer OTHER, SELFPAY ==
--- NOTE | ~2021-07-13 | MM_ITS ---
EXAMINATION: MM SCREENING DIGITAL BREAST TOMOSYNTHESIS, BILATERAL CLINICAL INFORMATION: Screening. Asymptomatic. The lifetime risk of breast cancer based on the Tyrer-Cuzick Model is 7.9%. COMPARISON: Mammography 01/28/2020 and studies dating back to 10/17/2015. TECHNIQUE: Digital breast tomosynthesis is performed in both the craniocaudal and mediolateral oblique views along with computer-aided detection (CAD). Synthesized 2D images are generated from the tomosynthesis. FINDINGS: The breasts are heterogeneously dense, which may obscure small masses (ACR BI-RADS breast composition Category c). There is a stable parenchymal pattern of the right breast without abnormal dominant mass or suspicious grouping of microcalcifications. Within the lateral aspect of the left breast approximately 8 cm from the nipple there is an increasing grouping of microcalcifications questionably associated with an ill-defined density for which spot magnification film is recommended in craniocaudal projection. I do not definitely see this on mediolateral oblique projection. MM/MM tomosynthesis screening BI IMPRESSION: Grouping of calcifications about the lateral aspect of the left breast for which spot magnification view in craniocaudal projection is suggested. ASSESSMENT: BI-RADS 0: Incomplete - Need Additional Imaging Evaluation RECOMMENDATION: 1. Additional views of the left breast. 2. Targeted ultrasound if warranted after review of the additional views. 3. Radiology department staff will contact the patient for additional imaging. This patient's information was entered into a reminder system with a target due date for their next mammogram.
== END 2021-07-13 15:44 | disposition home or self-care (01) ==
LOC: HO.MAMMO 15:43
PROVIDERS: Visit Provider Nurse Practitioner Family
DX: Z12.31 Encounter for screening mammogram for malignant neoplasm of breast (principal)
CPT/HCPCS: 77063; 77067

== ENCOUNTER 2021-07-17 13:53 | Outpatient (REF) | payer OTHER, SELFPAY ==
--- NOTE | ~2021-07-17 | US_ITS ---
EXAMINATION: US PELVIS CLINICAL INFORMATION: Pelvic and perineal pain. LMP 3 weeks ago COMPARISON: None TECHNIQUE: Ultrasound of the pelvis is performed using both transabdominal and transvaginal transducers along with Doppler. Transvaginal imaging is performed due to inadequate visualization transabdominally. FINDINGS: Uterus: The uterus is anteverted and measures 9.3 cm in length, 4.0 mL in AP and 4.8 cm in transverse dimension. The double wall endometrial thickness is 1.04 cm. There is small amount of fluid within the endometrial canal. Small nabothian cysts are seen in the cervix. The uterus is smooth in contour and has normal myometrial echogenicity. No visible fibroid. Adnexa: Both ovaries are visualized. There is normal color flow to the adnexa. There is no ovarian torsion. There is no pelvic ascites or fluid collection. Right ovary measures 2.2 x 2.4 x 2.1 CM and volume 5.7 mL. The ovary appears unremarkable. Previously it measured 3.5 x 2.0 x 2.5 cm and volume 9.2 mL Left ovary measures 3.6 x 2.4 x 2.6 cm and volume 11.6ml. There is corpus luteal cyst measuring 1.5 x 1.5 x 1.6 cm. No free fluid seen in the cul-de-sac. US/US pelvic and transvaginal IMPRESSION: Small corpus luteal cyst in left ovary. The right ovary is unremarkable. Small amount of fluid within the endometrial canal. Uterus unremarkable. Small nabothian cysts in the cervix.
== END 2021-07-17 13:54 | disposition home or self-care (01) ==
LOC: HO.US 13:53
PROVIDERS: Visit Provider Advanced Practice Midwife
DX: R10.2 Pelvic and perineal pain (principal)
CPT/HCPCS: 76830; 76856

== ENCOUNTER → 2021-08-17 14:08 | Outpatient (BNVA) | payer OTHER, SELFPAY | PROVIDERS: PCP Internal Medicine; Visit Provider Advanced Practice Midwife | DX: Z71.2 Person consulting for explanation of examination or test findings (principal); R10.2 Pelvic and perineal pain; N89.8 Other specified noninflammatory disorders of vagina | CPT/HCPCS: 99212 ==

== ENCOUNTER → 2021-09-14 09:57 | Outpatient (BNVA) | payer OTHER, SELFPAY | PROVIDERS: PCP Internal Medicine; Visit Provider Internal Medicine Endocrinology, Diabetes & Metabolism | DX: D35.2 Benign neoplasm of pituitary gland (principal) | CPT/HCPCS: 99212 ==

== ENCOUNTER 2021-10-09 17:00 | Outpatient (RCR) | payer OTHER, SELFPAY ==
--- NOTE | 2021-09-05 18:25 | MHC.PT.EP ---
[facility] [place] Office [place] [facility] [place] [facility] [address] [phone] F: [phone] F: [phone] F: [phone] F: [phone] Physical Therapy Plan of Care Date of Evaluation: Date of Surgery: n/a Diagnosis: flat foot, right foot flat foot, left foot peroneal tendinitis, right leg Assessment: Pt is a pleasant 46yo F who presents to PT with R ankle pain. She has a hx of R ankle fracture about ~3 years ago and was wearing a boot for 7 months after the injury. She presents today with current impairments in pain, decreased ankle ROM, decreased strength, decreased gastroc/soleus length, pes planus, decreased balance, and impaired gait. She is limited functionally by prolonged sitting, prolonged standing, prolonged walking, and stair navigation. She is a good candidate for skilled PT in order to address current impairments to maximize functional mobility. She will be seen 2x/week for 4 weeks and will be reassessed at that time. Frequency and Duration: The patient will be seen 2x/week for 4 weeks Short Term Goals: Pt will be I with HEP to promote self management of symptoms Pt will improve R DF to at least 10 degrees Vault Custodian Goals: Pt will demonstrate full ROM and strength throughout R ankle Pt will tolerate ambulation > 1 hour with minimal to no pain with improved gait mechanics Pt will demonstrate improvements in functional mobility as evidenced by statistically significant improvement in LEFI outcome measure Treatment Plan: Modalities to reduce pain, spasms and effusion. Manual therapy to restore motion and function. Therapeutic exercise to improve strength and flexibility. Neuromuscular re-education for posture and balance. Therapeutic activities to return to functional activities of daily living. Electronically signed by: Melva Miller, PT, DPT Please sign and return to therapist. Thank you for your referral.
--- NOTE | 2021-11-09 14:08 | MHC.PT.DC ---
[facility] [place] Office [place] Office [place] [facility] [address] [phone] F: [phone] F: [phone] F: [phone] F: [phone] Physical Therapy Discharge Report Diagnosis: flat foot, right foot flat foot, left foot peroneal tendinitis, right leg Date of Surgery: n/a Date of Evaluation: 09/05/21 Date of Discharge: 11/09/21 Treatments to Date: 3 Cancellations to Date: 5 No Shows to Date: 3 Discharge Status: Visit Non-compliance Discharge Summary: Pt was seen for PT from 09/05/21-10/09/21. Her last attended appointment was 10/09/21. She attended 3 PT sessions and had 5 cancellations and 3 no-show appointments. Pt is being D/C per [facility] attendance policy and visit non-compliance. Pt current level of function unknown at this time. Electronically signed by: Melva Miller, PT, DPT Please sign and return to therapist. Thank you for your referral.
== END 2021-11-09 14:09 | disposition home or self-care (01) ==
LOC: HO.PT 17:00
PROVIDERS: PCP Internal Medicine; Visit Provider Physician Assistant
DX: M21.41 Flat foot [pes planus] (acquired), right foot (principal); M21.42 Flat foot [pes planus] (acquired), left foot; M76.71 Peroneal tendinitis, right leg
CPT/HCPCS: 97110; 97161

== ENCOUNTER 2021-11-15 16:28 | Outpatient (REF) | payer OTHER, SELFPAY ==
--- NOTE | ~2021-11-15 | MR_ITS ---
MR BRAIN WITHOUT AND WITH IV CONTRAST CLINICAL INFORMATION: Benign neoplasm of the pituitary gland. COMPARISON: Brain MRI 05/19/2020. TECHNIQUE: Multiplanar, multisequence MRI of the brain was obtained before and after the intravenous administration of 4 mL of Gadavist. FINDINGS: Stable appearing 4.5 mm hypoenhancing lesion within the right aspect of the anterior pituitary lobe resulting in a upward convex margin of the gland in this location. The infundibulum remains midline. There is no mass effect on the optic nerve apparatus. Cavernous sinuses are symmetric and normal. There is no hydrocephalus, extra-axial surface collection, or herniation. The major flow voids at the skull base are preserved. There is no acute infarct on diffusion-weighted imaging. The cerebellar tonsils are normally positioned. The cerebellum and brainstem are normal. The craniocervical junction is normal. Osseous marrow signal intensity is homogenous. The visualized soft tissues are unremarkable. MR/MR head/brain wo/w con IMPRESSION: Stable appearing 4.5 mm hypoenhancing lesion within the right aspect of the anterior pituitary lobe. There is no significant sellar/suprasellar mass effect.
== END 2021-11-15 16:29 | disposition home or self-care (01) ==
LOC: HO.MRI 16:28
PROVIDERS: Visit Provider Internal Medicine Endocrinology, Diabetes & Metabolism
DX: D35.2 Benign neoplasm of pituitary gland (principal)
CPT/HCPCS: 70553; A9585

== ENCOUNTER 2022-05-01 13:38 | Emergency (ER) | payer OTHER, SELFPAY ==
[2022-05-01 13:49] VITALS: BP 136/88; PULSE 81; RESP 19; TEMP 36.6; O2SAT 98; BMI 28.2
--- NOTE | 2022-05-01 13:49 | ED_ITS ---
HPI - Extremity Injury (Lower) General Chief Complaint: Extremity Injury, Lower <MYRIAM Marroquin - Last Filed: 05/01/22 13:51> Stated Complaint: Toe on R foot red/swollen <MYRIAM Marroquin - Last Filed: 05/01/22 13:51> Time Seen by Provider: 05/01/22 14:03 <MYRIAM Marroquin - Last Filed: 05/01/22 13:51> Source: patient <Mayra Benavides CNP - Last Filed: 05/01/22 15:19> Mode of arrival: ambulatory <Mayra Benavides CNP - Last Filed: 05/01/22 15:19> Limitations: no limitations <Mayra Benavides CNP - Last Filed: 05/01/22 15:19> History of Present Illness HPI Narrative: Patient is a 46-year-old female who presents to the emergency department for evaluation of right great toe redness, swelling, and pain. Onset of symptoms was 3 days ago. Denies any fevers, chills, drainage from the toe/nail bed. <Mayra Benavides CNP - Last Filed: 05/01/22 15:19> Related Data Home Medications: Previous Rx's Medication Instructions Recorded ibuprofen 800 mg tablet 800 mg PO Q8H PRN pain #20 tabs 03/21/20 acetaminophen 500 mg tablet 1,000 mg PO QID PRN fever or pain 12/12/20 (Tylenol Extra Strength) #14 tabs albuterol sulfate 90 mcg/actuation 1 inh inhalation QID PRN shortness 12/29/20 aerosol inhaler of breath or wheezing #8.5 grams butalbital 25 mg-acetaminophen 325 1 tab PO ONCE PRN tension headache 12/29/20 mg tablet 30 days #30 tabs cholecalciferol (vitamin D3) 50 50 mcg PO DAILY 30 days #30 caps 12/29/20 mcg (2,000 unit) capsule escitalopram oxalate 10 mg tablet 10 mg PO DAILY 90 days #90 tabs 12/29/20 jycxscioch-ytwvoojompjsr-jnevgqjn 1 cap PO Q6H PRN pain 30 days #60 01/06/21 50 mg-325 mg-40 mg capsule caps Anti-pronation orthotics #1 ea 06/26/21 metronidazole 500 mg tablet 500 mg PO Q12H 7 days #14 tabs 08/17/21 <MYRIAM Marroquin - Last Filed: 05/01/22 13:51> Allergies/Adverse Reactions: Allergies Allergy/AdvReac Type Severity Reaction Status Date / Time No Known Allergies Allergy Verified 09/14/21 10:01 [No Known Allergies*] <MYRIAM Marroquin - Last Filed: 05/01/22 13:51> Review of Systems Review of Systems: Skin: Swelling, erythema along right great toenail bed as noted in HPI <Mayra Benavides CNP - Last Filed: 05/01/22 15:19> Yes all other systems are reviewed and are negative <Mayra Benavides CNP - Last Filed: 05/01/22 15:19> PMFSH Past Medical History Attestation statement: The following information was validated with the patient. <Mayra Benavides CNP - Last Filed: 05/01/22 15:19> Source: old records reviewed <Mayra Benavides CNP - Last Filed: 05/01/22 15:19> Medical History: Medical History Acute carpal tunnel syndrome COVID-19 ruled out Hand pain, right Mild persistent asthma, uncomplicated Moderate recurrent major depression Nail fungus Pituitary microadenoma Tension headache Vitamin D deficiency <MYRIAM Marroquin - Last Filed: 05/01/22 13:51> Surgical History: Surgical History History of tubal ligation History of umbilical hernia repair <MYRIAM Marroquin - Last Filed: 05/01/22 13:51> Family History Family History: Family History Father Medical history unknown Mother Uterine cancer Maternal Aunt Hypertension Maternal Grandfather Hypertension Diabetes <MYRIAM Marroquin - Last Filed: 05/01/22 13:51> Social History Social History: Social History Housing: Apartment Alcohol intake: never Patient Tobacco Use Status: Current everyday Tobacco user Tobacco use type: Cigarette Cigarettes Per Day: 3 e-Cigarette/Vaping Use: Never Used Second Hand Smoke Exposure: No Advance Directives: No Advance Directives Information Provided: No service: No Current occupational status: employed Current occupation: [employer] Current occupational exposures/hazards: No <MYRIAM Marroquin - Last Filed: 05/01/22 13:51> Physical Exam Vital Signs: Vital Signs: Last Vital Signs Temp 98 F 05/01/22 13:49 Pulse 81 05/01/22 13:49 Resp 19 05/01/22 13:49 BP 136/88 05/01/22 13:49 Pulse Ox 98 05/01/22 13:49 O2 Del Method 05/01/22 13:49 BMI result Body Mass Index 28.2 <MYRIAM Marroquin - Last Filed: 05/01/22 13:51> Vital Signs: Last Vital Signs Temp 98 F 05/01/22 13:49 Pulse 81 05/01/22 13:49 Resp 19 05/01/22 13:49 BP 136/88 05/01/22 13:49 Pulse Ox 98 05/01/22 13:49 O2 Del Method 05/01/22 13:49 BMI result Body Mass Index 28.2 <Mayra Benavides CNP - Last Filed: 05/01/22 15:19> Appearance: Alert.?Oriented to person, place and time. No acute distress.?Normal affect.? Neck: Normal inspection.? Neck supple.?? CVS: Heart sounds normal. Normal heart rate and rhythm.? Pulses normal.?? Respiratory: No respiratory distress.? Lung sounds clear to auscultation bilaterally?? Abdomen: Soft and non-tender. Skin: Skin warm and dry.? Normal skin color.? Right great toe with swelling, redness, mild warmth surrounding the nail bed. Area is indurated, no areas of fluctuance. Extremities: No lower extremity edema.? Neuro: Moves all extremities spontaneously. Sensation intact bilaterally. Ambulates with normal steady gait. <Mayra Benavides CNP - Last Filed: 05/01/22 15:19> Course Course Course Narrative: RME - 46 yo female presenting with right great toe redness, pain and swelling for the last 3 days. Not diabetic. No recent foot care/pedicure. No hx gout. Exam c/w mild infection of nail bed. ?able to I&D today vs just start on PO abx and warm soaks. <MYRIAM Marroquin - Last Filed: 05/01/22 13:51> Medical Decision Making Medical Decision Making MDM Narrative: Patient is a 46-year-old female presents emergency department for e valuation of right great toe. She is overall well-appearing, without signs of systemic toxicity. Vital signs are stable. History physical examination most consistent with paronychia at this time, without evidence of abscess, no indication for incision/drainage at this time. Physical examination not consistent with gout, no Pradaxa. No history of diabetes. Discussed plan of care for warm moist compresses/soaks, acetaminophen/ibuprofen as needed for pain, topical bacitracin, and prescription for cephalexin sent to patient's pharmacy. Outpatient follow-up with primary care provider for persistent symptoms. Reviewed worrisome signs and symptoms that would warrant re- evaluation in the emergency department. All questions answered. She departed in stable condition, ambulatory with a steady gait. <Mayra Benavides CNP - Last Filed: 05/01/22 15:19> Differential Diagnosis Differential Diagnoses: The differential diagnosis associated with the presentation includes (Cellulitis/paronychia, abscess, gout) <Mayra Benavides CNP - Last Filed: 05/01/22 15:19> Prescription Management I considered prescription management with: Pain Medication (Acetaminophen/ibuprofen) and Antibiotic (Topical, oral) <Mayra Benavides CNP - Last Filed: 05/01/22 15:19> Discharge Plan Discharge Clinical Impression: Paronychia of great toe of right foot <MYRIAM Marroquin - Last Filed: 05/01/22 13:51> Patient Disposition: Home, Self-Care <MYRIAM Marroquin - Last Filed: 05/01/22 13:51> Instructions: Paronychia (ED) <MYRIAM Marroquin - Last Filed: 05/01/22 13:51> Additional Instructions: As discussed, soak the foot/toe in warm water with mild non scented soap 3 times daily. You may apply topical bacitracin/antibiotic ointment to this area. A prescription for an antibiotic was sent to the pharmacy, please complete this entire course. At this time there is no indication for needle drainage. You can take ibuprofen 200 mg, 3 tablets (600mg) every 6-8 hours as needed for pain, in addition to Tylenol 500 mg, 2 tablets (1,000mg) every 4-6 hours as needed for pain, but not to exceed 3 doses daily (3,000mg).? For persistent or worsening symptoms that should be re-evaluated. You may contact your primary care provider to arrange for a follow-up visit. Return back to emergency department any new or worsening symptoms or concerns. <MYRIAM Marroquin - Last Filed: 05/01/22 13:51> Prescriptions: No Action vpgvwzkokm-uapuwikceobtv-imkk 50-325-40 mg capsule 1 cap PO Q6H PRN (Reason: pain) 30 Days Qty: 60 0RF ibuprofen 800 mg tablet 800 mg PO Q8H PRN (Reason: pain) Qty: 20 0RF acetaminophen [Tylenol Extra Strength] 500 mg tablet 1,000 mg PO QID PRN (Reason: fever or pain) Qty: 14 0RF escitalopram oxalate 10 mg tablet 10 mg PO DAILY 90 Days Qty: 90 2RF cholecalciferol (vitamin D3) 50 mcg (2,000 unit) capsule 50 mcg PO DAILY 30 Days Qty: 30 11RF butalbital-acetaminophen 25-325 mg tablet 1 tab PO ONCE PRN (Reason: tension headache) 30 Days Qty: 30 0RF albuterol sulfate 90 mcg/actuation HFA aerosol inhaler 1 inh inhalation QID PRN (Reason: shortness of breath or wheezing) Qty: 8.5 0RF (DME) Anti-pronation orthotics See Rx Instructions .ROUTE .MEDSUPPLY Qty: 1 0RF Rx Instructions: Anti-pronation orthotics metronidazole 500 mg tablet 500 mg PO Q12H 7 Days Qty: 14 0RF <MYRIAM Marroquin - Last Filed: 05/01/22 13:51> Referrals: Vianca Zelaya MD [Primary Care Provider] - <MYRIAM Marroquin - Last Filed: 05/01/22 13:51> Stand Alone Forms: Work/School Release <MYRIAM Marroquin - Last Filed: 05/01/22 13:51>
== END 2022-05-01 15:40 | disposition home or self-care (01) ==
PROVIDERS: Emergency Provider Student in an Organized Health Care Education/Training Program; PCP Internal Medicine
DX: L03.031 Cellulitis of right toe (principal); M79.674 Pain in right toe(s); F17.210 Nicotine dependence, cigarettes, uncomplicated
CPT/HCPCS: 99282; 99283

== ENCOUNTER 2022-11-14 20:15 | Emergency (ER) | payer OTHER, SELFPAY ==
--- NOTE | ~2022-11-14 | CT_ITS ---
EXAMINATION: CT ABDOMEN AND PELVIS WITHOUT CONTRAST CLINICAL INFORMATION: Left-sided abdominal pain. COMPARISON: Ultrasound pelvis dated 07/09/2021. TECHNIQUE: Multidetector volumetric imaging was performed from the superior aspect of the liver through the pubic symphysis. Sagittal and coronal reformatted images were obtained on the technologist's workstation. Lack of intravenous and oral contrast limits visceral evaluation. This CT examination was performed using dose optimization techniques as appropriate, variously including the following: *Automated exposure control *Adjustment of mA and/or kV according to patient size (this includes techniques or standardized protocols for targeted exams where dose is matched to indication/reason for exam; i.e. extremities or head) *Use of iterative reconstruction technique DLP: 634 mGy-cm FINDINGS: LUNG BASES: The visualized lung bases are unremarkable. LIVER, GALLBLADDER, AND BILIARY TREE: No hepatic abnormality. Decompressed gallbladder without associated abnormality. No biliary ductal dilatation. PANCREAS: Unremarkable. SPLEEN: Unremarkable. ADRENAL GLANDS: Unremarkable. KIDNEYS AND URETERS: The kidneys are normal in size, shape, and attenuation. No hydronephrosis, hydroureter, or calculi seen. No perinephric stranding. BLADDER: Unremarkable. GASTROINTESTINAL TRACT: The stomach, small bowel and appendix are unremarkable. The colon shows mild diverticulosis in the descending and sigmoid colon without surrounding abnormality. The rectum is unremarkable. ABDOMINAL WALL: No significant hernia is appreciated. LYMPH NODES: No lymphadenopathy. VASCULAR: Unremarkable. PELVIC VISCERA: Unremarkable. OSSEOUS STRUCTURES: Mild degenerative changes in the sacroiliac joints bilaterally. CT/CT abdomen pelvis wo IV con IMPRESSION: 1. No acute intra-abdominal/pelvic abnormality to explain the patient's pain. 2. Mild descending/sigmoid diverticulosis without evidence for acute diverticulitis.
[2022-11-14 20:30] VITALS: BP 126/77; PULSE 87; RESP 16; TEMP 36.3; O2SAT 96; BMI 30.3
--- NOTE | 2022-11-14 20:32 | ED_ITS ---
HPI - Abdominal Pain General Chief Complaint: Abdominal Pain Stated Complaint: Left abd pain Time Seen by Provider: 11/14/22 23:17 Source: patient, RN notes reviewed and old records reviewed Mode of arrival: ambulatory History of Present Illness HPI narrative: 47-year-old female with a past medical history of asthma, pituitary microadenom a, presenting to the ED complaining of acute on chronic worsening epigastric/LUQ abdominal pain radiating to L flank x today. Admits symptoms are intermittent, occurring over the past year however worsened today. States use to see GI specialist however has not followed up. Denies fever/chills, nausea/vomiting, diarrhea, dysuria/hematuria, vaginal bleeding/discharge MD elicited complaint: abdominal pain and flank pain Related Data Previous Rx's Medication Instructions Recorded ibuprofen 800 mg tablet 800 mg PO Q8H PRN pain #20 tabs 03/21/20 acetaminophen 500 mg tablet 1,000 mg PO QID PRN fever or pain 12/12/20 (Tylenol Extra Strength) #14 tabs albuterol sulfate 90 mcg/actuation 1 inh inhalation QID PRN shortness 12/29/20 aerosol inhaler of breath or wheezing #8.5 grams butalbital 25 mg-acetaminophen 325 1 tab PO ONCE PRN tension headache 12/29/20 mg tablet 30 days #30 tabs cholecalciferol (vitamin D3) 50 50 mcg PO DAILY 30 days #30 caps 12/29/20 mcg (2,000 unit) capsule escitalopram oxalate 10 mg tablet 10 mg PO DAILY 90 days #90 tabs 12/29/20 vajkmwziti-soipwmfkqrdcj-czkxccno 1 cap PO Q6H PRN pain 30 days #60 01/06/21 50 mg-325 mg-40 mg capsule caps Anti-pronation orthotics #1 ea 06/26/21 metronidazole 500 mg tablet 500 mg PO Q12H 7 days #14 tabs 08/17/21 cephalexin 500 mg capsule 500 mg PO TID 7 days #21 caps 05/01/22 Allergies Allergy/AdvReac Type Severity Reaction Status Date / Time No Known Allergies Allergy Verified 11/14/22 20:30 [No Known Allergies*] Review of Systems Review of Systems Constitutional: No Fever, No Chills, No Fatigue, No Malaise ENT/Mouth: No Ear Pain, No sore throat, No Rhinorrhea, No Swallowing Difficulty Eyes: No Eye Pain, No Swelling, No Redness, No Vision Changes Cardiovascular: No Chest Pain, No SOB, No Edema, No Palpitations Respiratory: No Cough, No Sputum, No Wheezing, No Smoke Exposure, No Dyspnea Gastrointestinal: No Nausea, No Vomiting, No Diarrhea, No Constipation, + Abdominal pain Genitourinary: No irregular bleeding, No Dysuria, No Urinary Frequency, No Hematuria, + Flank Pain, No Urinary Flow Changes Musculoskeletal: No joint pain, No Myalgias, No Joint Swelling Skin: No Skin Lesions, No rash Neuro: No Weakness, No Headache Yes all other systems are reviewed and are negative Constitutional: Reports as per [facility] Past Medical History Attestation statement: The following information was validated with the patient. Source: old records reviewed Medical History Acute carpal tunnel syndrome COVID-19 ruled out Hand pain, right Mild persistent asthma, uncomplicated Moderate recurrent major depression Nail fungus Pituitary microadenoma Tension headache Vitamin D deficiency Surgical History History of tubal ligation History of umbilical hernia repair Family History Family History Father Medical history unknown Mother Uterine cancer Maternal Aunt Hypertension Maternal Grandfather Hypertension Diabetes Social History Social History Housing: Apartment Alcohol intake: never Patient Tobacco Use Status: Current everyday Tobacco user Tobacco use type: Cigarette Cigarettes Per Day: 3 e-Cigarette/Vaping Use: Never Used Second Hand Smoke Exposure: No Advance Directives: No Advance Directives Information Provided: Yes service: No Current occupational status: employed Current occupation: [employer] Current occupational exposures/hazards: No Physical Exam ED Vital Signs: Vital Signs - 24 hr 11/14/22 20:30 11/15/22 00:00 Temperature 97.3 F 97.8 F Pulse Rate 87 78 Respiratory Rate 16 16 Blood Pressure 126/77 145/76 H Pulse Oximetry 96 98 Oxygen Delivery Method Room Air Room Air BMI result Body Mass Index 30.3 Const General: cooperative, healthy appearing and no acute distress Orientation/consciousness: patient oriented x3 Limitations: no limitations HENMT Head: Yes normal to inspection and Yes atraumatic Ears: hearing grossly normal bilaterally General nose exam: Normal external nose present Face and sinus: Yes normal facial exam Eyes General: appearance normal, both eyes and all related structures EOM: EOMs intact bilaterally Neck Neck: Yes normal visual inspection and Yes no meningeal signs Chest Chest palpation & inspection: normal inspection of the chest, no crepitus and no tenderness Resp Effort & Inspection: normal respiratory effort and no respiratory distress Auscultation: clear to auscultation bilaterally Cardio Rate: regular rate Heart sounds: S1 normal heart sound present and S2 normal heart sound present GI Inspection: Yes normal to inspection Palpation (GI): Soft to palpation, nontender, no guarding and not rigid General: Yes no CVA tenderness Back/Spine/Pelvis Back: no CVA tenderness Skin Rashes: no rashes Wounds: no wounds Neuro General: patient oriented x3, tone normal and no meningeal signs Gait exam (Neuro): Normal gait present Extrem General: Yes normal to inspection Course Course Course Narrative: RME - 47 yo female presents to the ER for evaluation of LLQ pain that started today. Pain with having BM and sitting. No blood in BM. No N/V/D, fevers or urinary symptoms. LLQ tenderness on exam Plan: labs, UA, CT scan abd/pelvis -2335--labs reassuring/unremarkable CT abdomen pelvis wo IV con IMPRESSION: 1.? No acute intra-abdominal/pelvic abnormality to explain the patient's pain. 2.? Mild descending/sigmoid diverticulosis without evidence for acute diverticulitis. -0051--UA not infected Results discussed with patient including worrisome signs and symptoms and strict return precautions, and when to return to the emergency department. They verbalized understanding and feel safe for discharge at this time. Medical Decision Making Medical Decision Making MDM Narrative: 47-year-old female with a past medical history of asthma, pituitary microadenoma, presenting to the ED complaining of acute on chronic worsening epigastric/LUQ abdominal pain radiating to L flank x today. On exam vital signs stable, NAD, nontoxic appearing, abdomen soft/nontender, no CVAT. Concern for gastritis/GERD vs pancreatitis vs renal stone/pyelo. Rule out UTI. Lower suspicion for cholecystitis/lithiasis, appendicitis/diverticulitis or ACS Plan: Labs, UA, CT AP, GI cocktail, re-evaluate Please refer to course for remaining clinical decision making, interpretation of labs/imaging results, and discussions with consultants and/or family members. Differential Diagnosis Differential Diagnoses: The differential diagnosis associated with the presentation includes As above Admission/Observation Consideration of admission/observation: Escalation of care including admission/observation considered Lab Data MDM Lab Attestation statement: I reviewed the patient's lab results. 11/14/22 21:14 11/14/22 21:14 Labs: Lab Results 11/14/22 11/14/22 11/14/22 Range/Units 21:14 21:14 21:14 WBC 9.2 (4.8-10.8) X10*3/uL RBC 4.26 (4.20-5.50) X10*6/uL Hgb 13.5 (12.0-16.0) g/dl Hct 40.2 (37.0-47.0) % MCV 94.4 (80.0-98.0) fL MCH 31.7 (27.0-33.0) pg MCHC 33.6 (31.0-35.0) g/dl RDW 12.6 (11.0-16.0) % Plt Count 299 (160-400) X10*3/uL MPV 10.1 (9.4-12.3) fL Immature Gran % (Auto) 0.2 (0.0-0.4) % Neut % (Auto) 66.6 (45-73) % Lymph % (Auto) 23.4 (20-40) % [place] % (Auto) 7.8 (2-11) % Eos % (Auto) 1.6 (0-4) % Baso % (Auto) 0.4 (0-2) % Lymph # (Auto) 2.1 (1.2-4.9) X10*3/uL [place] # (Auto) 0.7 (0.1-1.2) X10*3/uL Eos # (Auto) 0.2 (0.0-0.4) X10*3/uL Baso # (Auto) 0.0 (0.0-0.2) X10*3/uL Abs Immat Gran (auto) 0.02 (0.00-0.03) X10*3/uL Absolute Neuts (auto) 6.1 (2.0-8.3) x10*3/uL Absolute Nucleated RBC 0.000 (0.0-0.012) X10*3/uL Nucleated RBC % (auto) 0.0 (0.0-0.2) /100WBC Sodium 140 (135-145) mmol/L Potassium 3.8 (3.3-5.1) mmol/L Chloride 108 (96-108) mmol/L Carbon Dioxide 22 (22-29) mmol/L Anion Gap 14 (12-20) BUN 16 (9-16) mg/dL Creatinine 1.36 (0.5-1.4) mg/dL Estim Creat Clear Calc 57.4 Estimated GFR 42 Random Glucose 90 (60-115) mg/dL Calcium 8.9 (8.4-10.2) mg/dL Magnesium 2.0 (1.6-2.6) mg/dL Total Bilirubin 0.1 (0.0-1.0) mg/dL Direct Bilirubin < 0.2 (0.0-0.5) mg/dL AST 15 (5-31) U/L ALT 18 (0-31) U/L Alkaline Phosphatase 67 (39-117) U/L Total Protein 6.7 (6.5-8.0) g/dL Albumin 3.7 (3.5-5.0) g/dL Lipase 33 (8-78) U/L Beta HCG, Quant < 2 mIU/mL Urine Color Urine Appearance Urine pH (5.0-9.0) Ur Specific [place] (1.005-1.025) Urine Protein (Neg-Trace) mg/dL Urine Glucose (UA) (Negative) mg/dL Urine Ketones (Negative) mg/dL Urine Blood (Negative) Urine Nitrite (Negative) Ur Leukocyte Esterase (Negative) 11/15/22 Range/Units 00:10 WBC (4.8-10.8) X10*3/uL RBC (4.20-5.50) X10*6/uL Hgb (12.0-16.0) g/dl Hct (37.0-47.0) % MCV (80.0-98.0) fL MCH (27.0-33.0) pg MCHC (31.0-35.0) g/dl RDW (11.0-16.0) % Plt Count (160-400) X10*3/uL MPV (9.4-12.3) fL Immature Gran % (Auto) (0.0-0.4) % Neut % (Auto) (45-73) % Lymph % (Auto) (20-40) % [place] % (Auto) (2-11) % Eos % (Auto) (0-4) % Baso % (Auto) (0-2) % Lymph # (Auto) (1.2-4.9) X10*3/uL [place] # (Auto) (0.1-1.2) X10*3/uL Eos # (Auto) (0.0-0.4) X10*3/uL Baso # (Auto) (0.0-0.2) X10*3/uL Abs Immat Gran (auto) (0.00-0.03) X10*3/uL Absolute Neuts (auto) (2.0-8.3) x10*3/uL Absolute Nucleated RBC (0.0-0.012) X10*3/uL Nucleated RBC % (auto) (0.0-0.2) /100WBC Sodium (135-145) mmol/L Potassium (3.3-5.1) mmol/L Chloride (96-108) mmol/L Carbon Dioxide (22-29) mmol/L Anion Gap (12-20) BUN (9-16) mg/dL Creatinine (0.5-1.4) mg/dL Estim Creat Clear Calc Estimated GFR Random Glucose (60-115) mg/dL Calcium (8.4-10.2) mg/dL Magnesium (1.6-2.6) mg/dL Total Bilirubin (0.0-1.0) mg/dL Direct Bilirubin (0.0-0.5) mg/dL AST (5-31) U/L ALT (0-31) U/L Alkaline Phosphatase (39-117) U/L Total Protein (6.5-8.0) g/dL Albumin (3.5-5.0) g/dL Lipase (8-78) U/L Beta HCG, Quant mIU/mL Urine Color Yellow Urine Appearance Clear Urine pH 5.5 (5.0-9.0) Ur Specific [place] >= 1.030 H (1.005-1.025) Urine Protein Negative (Neg-Trace) mg/dL Urine Glucose (UA) Negative (Negative) mg/dL Urine Ketones Trace (Negative) mg/dL Urine Blood Negative (Negative) Urine Nitrite Negative (Negative) Ur Leukocyte Esterase Negative (Negative) Radiology Impression Discussion of test interpretation with radiology: I have reviewed the radiologist's reading. External Record Review External record reviewed: Inpatient record, Office record, Outpatient record, Prior outpatient labs, Prior outpatient radiology, Primary care record and Outside ED record Tests considered The following testing was considered but not selected: As above Prescription Management I considered prescription management with: Pain Medication Medications Administered Discontinued Medications Generic Name Dose Route Start Last Admin Trade Name Freq PRN Reason Stop Dose Admin Al Hydroxide/Mg Hydroxide 30 ml 11/14/22 23:39 11/15/22 00:08 Magnesium Hydrox/Alum Hydrox 30 Ml Oral.Susp PO 11/14/22 23:40 30 ml ONCE ONE Administration Famotidine 20 mg 11/14/22 23:39 11/15/22 00:08 Famotidine 20 Mg Tablet PO 11/14/22 23:40 20 mg ONCE ONE Administration Discharge Plan Discharge Clinical Impression: Abdominal pain Patient Disposition: Home, Self-Care Instructions: Abdominal Pain (ED) Additional Instructions: Your blood work, urine, and CT scan were reassuring Please follow-up with Gastroenterology and your primary care doctor If symptoms persist or worsen/becomes unbearable, you are unable to eat or drink return to the ED Prescriptions: No Action gaoildcmap-idrzkzwxfdyro-iqbo 50-325-40 mg capsule 1 cap PO Q6H PRN (Reason: pain) 30 Days Qty: 60 0RF ibuprofen 800 mg tablet 800 mg PO Q8H PRN (Reason: pain) Qty: 20 0RF acetaminophen [Tylenol Extra Strength] 500 mg tablet 1,000 mg PO QID PRN (Reason: fever or pain) Qty: 14 0RF cephalexin 500 mg capsule 500 mg PO TID 7 Days Qty: 21 0RF escitalopram oxalate 10 mg tablet 10 mg PO DAILY 90 Days Qty: 90 2RF cholecalciferol (vitamin D3) 50 mcg (2,000 unit) capsule 50 mcg PO DAILY 30 Days Qty: 30 11RF butalbital-acetaminophen 25-325 mg tablet 1 tab PO ONCE PRN (Reason: tension headache) 30 Days Qty: 30 0RF albuterol sulfate 90 mcg/actuation HFA aerosol inhaler 1 inh inhalation QID PRN (Reason: shortness of breath or wheezing) Qty: 8.5 0RF (DME) Anti-pronation orthotics See Rx Instructions .ROUTE .MEDSUPPLY Qty: 1 0RF Rx Instructions: Anti-pronation orthotics metronidazole 500 mg tablet 500 mg PO Q12H 7 Days Qty: 14 0RF Referrals: [facility] [place] [facility] [Provider Group] - 1 week Vianca Zelaya MD [Primary Care Provider] - 3 days Stand Alone Forms: Work/School Release Interventions: ED Discharge Assessment Last Done: 11/15/22 01:12 Discharge Date/Time: 11/15/22 01:12
[2022-11-14 21:21] LABS: MANUAL DIFF FLAG NO
[2022-11-14 21:25] LABS: Basophils Percent Auto 0.4 % (0-2); Eosinophils Absolute Auto 0.2 X10*3/uL (0.0-0.4); Eosinophils Percent Auto 1.6 % (0-4); Hematocrit 40.2 % (37.0-47.0); Hemoglobin 13.5 g/dl (12.0-16.0); Imm Gran Abs Auto 0.02 X10*3/uL (0.00-0.03); Imm Gran Pct Auto 0.2 % (0.0-0.4); Lymphocytes Absolute Auto 2.1 X10*3/uL (1.2-4.9); Lymphocytes Percent Auto 23.4 % (20-40); Mean Corpuscular HGB Conc 33.6 g/dl (31.0-35.0); Mean Corpuscular Hemoglobin 31.7 pg (27.0-33.0); Mean Corpuscular Volume 94.4 fL (80.0-98.0); Mean Platelet Volume 10.1 fL (9.4-12.3); Monocytes Absolute Auto 0.7 X10*3/uL (0.1-1.2); Monocytes Percent Auto 7.8 % (2-11); Neutrophils Absolute Auto 6.1 x10*3/uL (2.0-8.3); Neutrophils Percent Auto 66.6 % (45-73); Platelet Count 299 X10*3/uL (160-400); Red Blood Count 4.26 X10*6/uL (4.20-5.50); Red Cell Distribution Width 12.6 % (11.0-16.0); White Blood Count 9.2 X10*3/uL (4.8-10.8)
[2022-11-14 21:58] LABS: Alanine Aminotransferase 18 U/L (0-31); Albumin Level 3.7 g/dL (3.5-5.0); Alkaline Phosphatase 67 U/L (39-117); Anion Gap 14 (12-20); Aspartate Amino Transferase 15 U/L (5-31); Bilirubin Direct < 0.2 mg/dL (0.0-0.5); Bilirubin Total 0.1 mg/dL (0.0-1.0); Blood Urea Nitrogen 16 mg/dL (9-16); Calcium 8.9 mg/dL (8.4-10.2); Carbon Dioxide 22 mmol/L (22-29); Chloride 108 mmol/L (96-108); Creatinine Clr Calc Pharmacy 57.4; Estimated Glomerular Filt Rate 42; Glucose Random 90 mg/dL (60-115); HCG Quantitative < 2 mIU/mL; Lipase 33 U/L (8-78); Potassium 3.8 mmol/L (3.3-5.1); Sodium 140 mmol/L (135-145); Total Protein 6.7 g/dL (6.5-8.0)
[2022-11-15] VITALS: BP 145/76; PULSE 78; RESP 16; TEMP 36.6; O2SAT 98
[2022-11-15] MEDS: Magnesium Hydrox/Alum Hydrox 30 ML ORAL.SUSP PO (00:08)
[2022-11-15] MEDS: Famotidine 20 MG TABLET PO (00:08)
[2022-11-15 00:29] LABS: Appearance Urine Clear; Color Urine Yellow; Glucose Urine UA Negative (Negative); Leukocyte Esterase Urine Negative (Negative); Nitrite Urine Negative (Negative); PH 5.5 (5.0-9.0); Specific Gravity - Urine >= 1.030 (1.005-1.025); Urine Blood Negative (Negative); Urine Ketones Trace mg/dL (Negative); Urine Protein Negative (Neg-Trace)
== END 2022-11-15 01:12 | disposition home or self-care (01) ==
PROVIDERS: Physician Assistant; Emergency Provider Student in an Organized Health Care Education/Training Program; PCP Internal Medicine
DX: R10.9 Unspecified abdominal pain (principal)
CPT/HCPCS: 36415; 74176; 80048; 80076; 81003; 83690; 83735; 84702; 85025; 99283; 99284

== ENCOUNTER 2022-11-22 13:49 | Emergency (ER) | payer OTHER, SELFPAY ==
--- NOTE | ~2022-11-22 | XR_ITS ---
EXAMINATION: XR ANKLE, RIGHT CLINICAL INFORMATION: Pain and swelling COMPARISON: None available. TECHNIQUE: AP, lateral, and mortise views of the right ankle. FINDINGS: There is a moderate size calcaneal heel and anterior distal tibial spurring. The ankle mortise and subtalar joints are normal. No acute fracture or dislocation seen. The soft tissues are normal XR/XR ankle RT min 3V IMPRESSION: Moderate size calcaneal heel and anterior distal tibial at the talotibial joint spurring.
--- NOTE | ~2022-11-22 | XR_ITS ---
EXAMINATION: XR TIBIA AND FIBULA, RIGHT CLINICAL INFORMATION: Prior fracture, pain and swelling COMPARISON: None available. TECHNIQUE: AP and lateral views of the right tibia and fibula were obtained. FINDINGS: The bones and soft tissues are normal. No fracture. No osseous lesions. XR/XR tibia fibula RT 2V IMPRESSION: Normal right tibia and fibula.
[2022-11-22 14:01] VITALS: BP 138/74; PULSE 72; RESP 18; TEMP 36.6; O2SAT 98; BMI 29.0
--- NOTE | 2022-11-22 14:01 | ED_ITS ---
HPI - General Adult General Chief complaint: Extremity Injury, Lower Stated complaint: swollen ankle for 3 days Time Seen by Provider: 11/22/22 15:38 Source: patient, RN notes reviewed and old records reviewed Mode of arrival: ambulatory History of Present Illness HPI narrative: 47-year-old female with a past medical history pituitary microadenoma, tension headaches, asthma, presenting to the ED complaining of acute on chronic right ankle pain and swelling x few days. Admits to prior ankle fracture to same side 5 years ago, with monthly flares of pain/swelling. Admits worked a double shift this week then pain started afterwards however denies known injury/trauma or fall. Reports pain worse with movement and ambulation. Denies numbness, tingling/weakness, fever, recent travel, cigarette smoking, history of clots Onset (ago): day(s) Related Data Previous Rx's Medication Instructions Recorded ibuprofen 800 mg tablet 800 mg PO Q8H PRN pain #20 tabs 03/21/20 acetaminophen 500 mg tablet 1,000 mg PO QID PRN fever or pain 12/12/20 (Tylenol Extra Strength) #14 tabs albuterol sulfate 90 mcg/actuation 1 inh inhalation QID PRN shortness 12/29/20 aerosol inhaler of breath or wheezing #8.5 grams butalbital 25 mg-acetaminophen 325 1 tab PO ONCE PRN tension headache 12/29/20 mg tablet 30 days #30 tabs cholecalciferol (vitamin D3) 50 50 mcg PO DAILY 30 days #30 caps 12/29/20 mcg (2,000 unit) capsule escitalopram oxalate 10 mg tablet 10 mg PO DAILY 90 days #90 tabs 12/29/20 [id number]-qmpmqgkrteclj-mxotuvma 1 cap PO Q6H PRN pain 30 days #60 01/06/21 50 mg-325 mg-40 mg capsule caps Anti-pronation orthotics #1 ea 06/26/21 metronidazole 500 mg tablet 500 mg PO Q12H 7 days #14 tabs 08/17/21 cephalexin 500 mg capsule 500 mg PO TID 7 days #21 caps 05/01/22 Allergies Allergy/AdvReac Type Severity Reaction Status Date / Time No Known Allergies Allergy Verified 11/22/22 14:01 [No Known Allergies*] Review of Systems Review of Systems: Constitutional: No Fever, No Chills ENT/Mouth: No Ear Pain, No Nasal Congestion, No sore throat, No Rhinorrhea, No Swallowing Difficulty Cardiovascular: No Chest Pain, No SOB Respiratory: No Cough, No Sputum, No Wheezing Gastrointestinal: No Nausea, No Vomiting, No Diarrhea, No Constipation, No Abdominal pain Musculoskeletal: + joint pain, No Myalgias, + Joint Swelling Skin: No Skin Lesions, No rash Neuro: No Weakness, No Numbness, No Paresthesias Yes all other systems are reviewed and are negative Constitutional: Constitutional: Reports as per [facility] Past Medical History Attestation statement: The following information was validated with the patient. Source: old records reviewed Medical History Acute carpal tunnel syndrome COVID-19 ruled out Hand pain, right Mild persistent asthma, uncomplicated Moderate recurrent major depression Nail fungus Pituitary microadenoma Tension headache Vitamin D deficiency Surgical History History of tubal ligation History of umbilical hernia repair Family History Family History Father Medical history unknown Mother Uterine cancer Maternal Aunt Hypertension Maternal Grandfather Hypertension Diabetes Social History Social History Housing: Apartment Alcohol intake: never Patient Tobacco Use Status: Current everyday Tobacco user Tobacco use type: Cigarette Cigarettes Per Day: 3 e-Cigarette/Vaping Use: Never Used Second Hand Smoke Exposure: No Advance Directives: No Advance Directives Information Provided: Yes service: No Current occupational status: employed Current occupation: [employer] Current occupational exposures/hazards: No Physical Exam ED Vital Signs: Vital Signs - 24 hr 11/22/22 14:01 Temperature 98 F Pulse Rate 72 Respiratory Rate 18 Blood Pressure 138/74 Pulse Oximetry 98 Oxygen Delivery Method Room Air BMI result Body Mass Index 29.0 Const General: cooperative, healthy appearing and no acute distress Orientation/consciousness: patient oriented x3 Limitations: no limitations HENMT Head: Yes normal to inspection and Yes atraumatic Ears: hearing grossly normal bilaterally General nose exam: Normal external nose present Face and sinus: Yes normal facial exam Eyes General: appearance normal, both eyes and all related structures EOM: EOMs intact bilaterally Neck Neck: Yes normal visual inspection and Yes no meningeal signs Resp Effort & Inspection: normal respiratory effort and no respiratory distress Cardio Rate: regular rate Heart sounds: S1 normal heart sound present and S2 normal heart sound present Peripheral pulses: dorsalis pedis present Skin Rashes: no rashes Wounds: no wounds Neuro General: patient oriented x3, tone normal and no meningeal signs Gait exam (Neuro): Normal gait present Extrem Other: +mild right ankle swelling without noted deformity/erythema/ecchymosis. Diffusely tender to palpation > medial and posterior malleolus. Achilles nontender, negative Zurita test. Neurovascular intact. No crepitus. No LE pitting edema or calf tenderness General: Yes normal to inspection Course Course Course Narrative: This is a rapid medical exam: Additional HPI, ROS, PE not included below will be deferred to primary provider. Patient is a 47-year-old female with history of prior tibia/fibula fx 5 years prior presenting to the ED with complaint of right ankle pain and swelling recurrent for months. Called her PCP today who was planning to refer patient to a specialist but patient states she cannot wait that long r/t the pain. Denies new injury. Plan: xray XR tibia fibula RT 2V IMPRESSION: Normal right tibia and fibula. XR ankle RT min 3V IMPRESSION: Moderate size calcaneal heel and anterior distal tibial at the talotibial joint spurring. >> GUILLAUME wrap applied for comfort/stability Results discussed with patient including worrisome signs and symptoms and strict return precautions, and when to return to the emergency department. They verbalized understanding and feel safe for discharge at this time. Medications Administered Discontinued Medications Generic Name Dose Route Start Last Admin Trade Name Freq PRN Reason Stop Dose Admin Ketorolac Tromethamine 30 mg 11/22/22 15:54 11/22/22 16:06 Ketorolac Tromethamine 30 Mg/Ml Vial IM 11/22/22 15:55 30 mg ONCE ONE Administration Medical Decision Making Medical Decision Making [facility] Narrative: 47-year-old female with a past medical history pituitary microadenoma, tension headaches, asthma, presenting to the ED complaining of acute on chronic right ankle pain and swelling x few days. On exam vital signs stable, NAD, nontoxic appearing, physical exam as noted above. Concern for osteoarthritic flare vs sprain vs occult fracture. Low suspicion for Achilles tendon injury/rupture, DVT or vascular compromise. No evidence of infection/septic joint Plan: X-ray, IM Toradol Please refer to course for remaining clinical decision making, interpretation of labs/imaging results, and discussions with consultants and/or family members. Differential Diagnosis Differential Diagnoses: The differential diagnosis associated with the presentation includes As above Independent Interpretation I performed an independent interpretation of an: Plain X-Ray Radiology Impression Discussion of test interpretation with radiology: I have reviewed the radiologist's reading. External Record Review External record reviewed: Inpatient record, Office record, Outpatient record, [facility]or outpatient labs, Prior outpatient radiology, Primary care record and Outside ED record Tests considered The following testing was considered but not selected: As above Prescription Management I considered prescription management with: Pain Medication Discharge Plan Discharge Clinical Impression: Acute ankle pain Patient Disposition: Home, Self-Care Instructions: Arthralgia (ED) Additional Instructions: Your x-rays show some bony spurs, no fractures Wear Guillaume wrap for comfort and stability/compression Ice and elevate Rest Take Tylenol /Motrin for pain Follow-up with her doctor If symptoms persist or worsen return to the ED Prescriptions: No Action dkcgplnkgf-pytrgtdwjqcgy-cixt 50-325-40 mg capsule 1 cap PO Q6H PRN (Reason: pain) 30 Days Qty: 60 0RF ibuprofen 800 mg tablet 800 mg PO Q8H PRN (Reason: pain) Qty: 20 0RF acetaminophen [Tylenol Extra Strength] 500 mg tablet 1,000 mg PO QID PRN (Reason: fever or pain) Qty: 14 0RF cephalexin 500 mg capsule 500 mg PO TID 7 Days Qty: 21 0RF escitalopram oxalate 10 mg tablet 10 mg PO DAILY 90 Days Qty: 90 2RF cholecalciferol (vitamin D3) 50 mcg (2,000 unit) capsule 50 mcg PO DAILY 30 Days Qty: 30 11RF butalbital-acetaminophen 25-325 mg tablet 1 tab PO ONCE PRN (Reason: tension headache) 30 Days Qty: 30 0RF albuterol sulfate 90 mcg/actuation HFA aerosol inhaler 1 inh inhalation QID PRN (Reason: shortness of breath or wheezing) Qty: 8.5 0RF (DME) Anti-pronation orthotics See Rx Instructions .ROUTE .MEDSUPPLY Qty: 1 0RF Rx Instructions: Anti-pronation orthotics metronidazole 500 mg tablet 500 mg PO Q12H 7 Days Qty: 14 0RF Referrals: [facility] [Provider Group] Vianca Zelaya MD [Primary Care Provider] - 10 days Stand Alone Forms: Work/School Release Interventions: ED Discharge Assessment Last Done: 11/22/22 16:41 Discharge Date/Time: 11/22/22 16:42
[2022-11-22] MEDS: Ketorolac Tromethamine 30 MG/ML VIAL IM (16:06)
== END 2022-11-22 16:42 | disposition home or self-care (01) ==
PROVIDERS: Emergency Provider Student in an Organized Health Care Education/Training Program; PCP Internal Medicine
DX: M25.571 Pain in right ankle and joints of right foot (principal); M25.471 Effusion, right ankle; Z79.899 Other long term (current) drug therapy
CPT/HCPCS: 73590; 73610; 96372; 99283; 99284; J1885

== ENCOUNTER 2022-12-20 14:45 | Outpatient (AMB) | payer OTHER, SELFPAY ==
--- NOTE | 2022-12-20 14:55 | AM.OFFVISNUR ---
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 Accompanied by: Self / Same As Patient Allergies No Known Allergies [No Known Allergies*] Allergy (Verified 12/20/22 14:56) Immunizations M-M-R II (PF) Performing Provider: Vianca Jonas MD Administered by: KERRY Rg on 12/20/22 14:57 Dose Route Admin Location Lot Number Expiration Date [facility] Gizzard Puller 0.5 mL subcut Left Arm [id number] 02/06/23 3714-7019-60 [employer] & D VIS Given Date VIS Provided VIS Publication Date 12/20/22 Single Vaccine 20 Eligibility Eligibility Date Funding Source Not [facility] Eligible 12/20/22 Private Coding Diagnoses Assessment & Plan Assessment & Plan Orders: Orders MMR Immunization Today Z23 - Encounter for immunization
== END 2022-12-20 15:57 | disposition home or self-care (01) ==
LOC: HO.HMGH 14:45
PROVIDERS: PCP Internal Medicine; Visit Provider Internal Medicine
DX: Z23 Encounter for immunization (principal)
CPT/HCPCS: 90471; 90707

== ENCOUNTER 2023-01-07 13:14 | Outpatient (AMB) | payer OTHER, SELFPAY ==
[2023-01-07 13:28] VITALS: BP 124/70; PULSE 69
--- NOTE | 2023-01-07 13:28 | A.OFFVIS_ITS ---
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 Patient was sent to us for evaluated her symptoms. Patient was seen in the ER in November for abdominal pain. CT scan showed no acute abnormalities. Diverticulosis seen in descending and sigmoid colon. No leukocytosis, normal liver enzyme normal lipase. Patient does complaining of left lower quadrant pain. Patient reports that she is not moving her bowels well. No BM for 2-3 days. Patient reports acid reflux with dyspepsia without dysphagia or odynophagia. Patient denies melena, hematochezia, unintentional weight loss or ribbon like stools. Patient denies any nausea or vomiting PFSH Medical History Tension headache Mild persistent asthma, uncomplicated Moderate recurrent major depression Vitamin D deficiency Pituitary microadenoma Hand pain, right COVID-19 ruled out Nail fungus Acute carpal tunnel syndrome Surgical History History of umbilical hernia repair History of tubal ligation Family History Father Medical history unknown Mother Uterine cancer Maternal Aunt Hypertension Maternal Grandfather Hypertension Diabetes Social History Housing: Apartment Alcohol intake: never Patient Tobacco Use Status: Current everyday Tobacco user Tobacco use type: Cigarette Cigarettes Per Day: 3 e-Cigarette/Vaping Use: Never Used Second Hand Smoke Exposure: No service: No Current occupational status: employed 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 Current occupational exposures/hazards: No Female Reproductive History Menstrual Age of Menarche: 13 Review of Systems Const Denies weight gain and Denies weight loss ENT Reports no additional complaints, Denies dysphagia and Denies odynophagia Card Reports no additional complaints Resp Reports no additional complaints GI Reports abdominal pain, Denies belching, Denies melena, Denies bloating, Reports constipation, Denies dysphagia, Denies excessive flatus, Denies dyspepsia, Reports heartburn (Occasional), Denies diarrhea, Denies loose stools, Denies nausea, Denies odynophagia and Denies vomiting Reports no additional complaints Musc Reports no additional complaints Neuro Reports no additional complaints Psych Reports no additional complaints Endo Reports no additional complaints Physical Exam Vital Signs: Last Vital Signs Pulse 69 01/07/23 13:28 BP 124/70 01/07/23 13:28 BMI result Body Mass Index 30.0 Const General: healthy appearing, no acute distress and well developed Nutritional Appearance: obese Orientation/consciousness: patient oriented x3 HEENT Head: Yes normal to inspection, Yes normocephalic and Yes atraumatic Face and sinus: Yes normal facial exam Mouth: Normal oral and palatal mucosa present Throat: Yes posterior oropharynx normal, Yes tonsils normal and Yes uvula midline Eyes General: appearance normal, both eyes and all related structures Neck Neck: Yes normal visual inspection, Yes full ROM and Yes trachea midline Thyroid: Thyroid normal Resp Effort & Inspection: normal respiratory effort, able to speak in complete sentences, no tracheal deviation and symmetric chest movement Auscultation: clear to auscultation bilaterally Cardio Rate: regular rate Heart sounds: S1 normal heart sound present and S2 normal heart sound present GI Inspection: Yes normal to inspection, No distended and Yes obesity Palpation (GI): Soft to palpation, not firm, nontender and No hepatosplenomegaly present Auscultation: normal bowel sounds General: Yes no CVA tenderness Back/Spine/Pelvis Back: no CVA tenderness Skin General skin exam: elasticity normal, turgor normal and dry skin Neuro General: patient oriented x3 Psych Appearance: grossly normal Mental Status: mental status grossly normal Speech and movement: Normal speech and movement present Results Reviewed Results Reviewed: CT OF ABDOMEN AND PELVIS 11/14/2022 FINDINGS: LUNG BASES: The visualized lung bases are unremarkable. LIVER, GALLBLADDER, AND BILIARY TREE: No hepatic abnormality. Decompressed gallbladder without associated abnormality. No biliary ductal dilatation. PANCREAS: Unremarkable. SPLEEN: Unremarkable. ADRENAL GLANDS: Unremarkable. KIDNEYS AND URETERS: The kidneys are normal in size, shape, and attenuation. No hydronephrosis, hydroureter, or calculi seen. No perinephric stranding. BLADDER: Unremarkable. GASTROINTESTINAL TRACT: The stomach, small bowel and appendix are unremarkable. The colon shows mild diverticulosis in the descending and sigmoid colon without surrounding abnormality. The rectum is unremarkable. ABDOMINAL WALL: No significant hernia is appreciated. LYMPH NODES: No lymphadenopathy. VASCULAR: Unremarkable. PELVIC VISCERA: Unremarkable. OSSEOUS STRUCTURES: Mild degenerative changes in the sacroiliac joints bilaterally. CT/CT abdomen pelvis wo IV con IMPRESSION: 1. No acute intra-abdominal/pelvic abnormality to explain the patient's pain. 2. Mild descending/sigmoid diverticulosis without evidence for acute diverticulitis. Assessment & Plan Assessment & Plan (1) Constipation: Code(s): K59.00 - Constipation, unspecified Qualifiers: Constipation type: slow transit constipation Qualified Code(s): K59.01 - Slow transit constipation (2) Abdominal pain: Code(s): R10.9 - Unspecified abdominal pain Qualifiers: Abdominal location: left lower quadrant Qualified Code(s): R10.32 - Left lower quadrant pain (3) Postprandial abdominal bloating: Code(s): R14.0 - Abdominal distension (gaseous) Plan Patient will start taking Colace and senna every day. Patient was encouraged to avoid dietary triggers in late night snacking. Staying upright for minimum 3 hours after meals discussed with patient. Patient was diagnosed with diverticulosis of left side of her colon. Patient was encouraged to increase fiber in her diet. Patient was encouraged to increase fluid intake and activity to promote better bowel motility. Patient will return in 2 months to discuss colonoscopy and if she will continue to have epigastric discomfort we will send her for upper endoscopy. Patient is agreeable to this plan and verbalizes understanding of instructions. She was given the opportunity to ask questions and all questions answered. Thank you for allowing me to participate in her care Medications: New docusate sodium 100 mg PO BEDTIME 90 caps 3RF K59.00 - Constipation, unspecified sennosides (Natural Senna Laxative) 17.2 mg (2 x 8.6 mg) PO BEDTIME 60 tabs 3RF constipation K59.00 - Constipation, unspecified Coding Level of Care Code New Pt Level 3 (68062) Diagnoses Slow transit constipation K59.01 Constipation type: slow transit constipation Left lower quadrant abdominal pain R10.32 Abdominal location: left lower quadrant Postprandial abdominal bloating R14.0 Time Spent (min) 40 Comment 30 minutes spent with patient and additional 10 minutes spent reviewing her records
== END 2023-01-07 13:53 | disposition home or self-care (01) ==
PROVIDERS: PCP Internal Medicine; Visit Provider Nurse Practitioner Family
DX: K59.01 Slow transit constipation (principal); R10.32 Left lower quadrant pain; R14.0 Abdominal distension (gaseous)
CPT/HCPCS: 99203

== ENCOUNTER → 2023-01-07 13:14 | Outpatient (BNVA) | payer OTHER, SELFPAY | PROVIDERS: PCP Internal Medicine; Visit Provider Nurse Practitioner Family ==

== ENCOUNTER 2023-03-20 06:14 | Emergency (ER) | payer OTHER, SELFPAY ==
[2023-03-20 06:25] VITALS: BMI 29.4
[2023-03-20 06:29] VITALS: BP 127/76; PULSE 70; RESP 18; TEMP 36.8; O2SAT 97
--- NOTE | 2023-03-20 06:43 | ED.GENADULT ---
HPI - General Adult General Chief complaint: Extremity Injury, Lower Stated complaint: ankle pain Time Seen by Provider: 03/20/23 06:42 Source: patient Mode of arrival: ambulatory Limitations: no limitations History of Present Illness HPI narrative: Patient is a 47 year old assigned female at with a history of chronic right ankle pain presenting to the emergency department today with acute on chronic right ankle pain. Patient states that she has had this ankle pain for many years and gets injections from the orthopedic office. Patient states that she got an injection 2 weeks ago and it is not helping the pain. 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 Patient denies any dizziness, lightheadedness, abdominal pain, nausea, vomiting, fever, chills, blurry vision, double vision, loss of vision, chest pain, difficulty breathing, shortness of breath, back pain, night sweats, pain with urination, increased urinary frequency, increased urinary urgency, blood in her urine or stool, syncope or a near syncopal episode, recent trauma or falls, bowel incontinence, bladder incontinence, bowel retention, bladder retention, or any other complaints at this time. Onset (ago): year(s) (6) Location: right and lower extremity Radiation: non-radiation Severity: mild Severity scale (1-10): 4 Quality: aching and dull Pain Consistency: constant Relieving factors: none Exacerbating factors: none Associated symptoms: denies other symptoms Related Data Previous Rx's Medication Instructions Recorded acetaminophen 500 mg tablet 1,000 mg (2 x 500 mg) PO QID PRN 12/12/20 (Tylenol Extra Strength) fever or pain #14 tabs albuterol sulfate 90 mcg/actuation 1 inh inhalation QID PRN shortness 12/29/20 aerosol inhaler of breath or wheezing #8.5 grams cholecalciferol (vitamin D3) 50 50 mcg PO DAILY 30 days #30 caps 12/29/20 mcg (2,000 unit) capsule escitalopram oxalate 10 mg tablet 10 mg PO DAILY 90 days #90 tabs 12/29/20 docusate sodium 100 mg capsule 100 mg PO BEDTIME #90 caps 01/07/23 sennosides 8.6 mg tablet (Natural 17.2 mg (2 x 8.6 mg) PO BEDTIME 01/07/23 Senna Laxative) constipation #60 tabs Allergies Allergy/AdvReac Type Severity Reaction Status Date / Time No Known Allergies Allergy Verified 01/07/23 13:30 [No Known Allergies*] Review of Systems Constitutional: Constitutional: Reports no additional constitutional complaints, Denies chills, Denies fever(s) and Denies night sweats Eyes: Eyes: Reports no additional eye complaints, Denies blurry vision, Denies change in vision, Denies diplopia, Denies eye discharge, Denies loss of vision and Denies eye pain ENT: Denies dizziness Cardiovascular: Cardiovascular: Reports no additional cardiovascular complaints, Denies chest pain, Denies lightheadedness, Denies Loss of Consciousness and Denies dyspnea Respiratory: Respiratory: Reports no additional respiratory complaints and Denies dyspnea Gastrointestinal: Gastrointestinal: Reports no additional gastrointestinal complaints, Denies abdominal pain, Denies melena, Denies hematochezia, Denies change in bowel habits and Denies change in stool character Genitourinary: Genitourinary: Denies hematuria, Denies urinary frequency, Denies dysuria, Denies urinary incontinence, Denies urinary hesitancy and Denies urinary urgency Musculoskeletal: Musculoskeletal: Reports no additional musculoskeletal complaints, Denies numbness and Denies tingling Comments: right ankle pain Neurologic: Denies dizziness, Denies loss of vision, Denies numbness and Denies tingling Psychiatric: Psychiatric: Reports no additional psychiatric complaints Endocrine: Endocrine: Reports no additional endocrine complaints Hematologic/Lymphatic: Hematologic/Lymphatic: Reports no additional hematologic/lymphatic complaints Allergic/Immunologic: Allergic/Immunologic: Reports no additional allergic/immunologic complaints [facility] Past Medical History Attestation statement: The following information was validated with the patient. Source: old records reviewed and nursing notes reviewed Medical History Blurry vision Physical exam Right ankle sprain Cough Tension headache Mild persistent asthma, uncomplicated Moderate recurrent major depression Vitamin D deficiency Pituitary microadenoma Hand pain, right COVID-19 ruled out Nail fungus Acute carpal tunnel syndrome Surgical History History of umbilical hernia repair History of tubal ligation Family History Family History Father Medical history unknown Mother Uterine cancer Maternal Aunt Hypertension Maternal Grandfather Hypertension Diabetes Social History Social History Housing: Apartment Alcohol intake: current Alcohol intake frequency: holidays/special occasions only Patient Tobacco Use Status: Current everyday Tobacco user Tobacco use type: Cigarette Cigarettes Per Day: 3 Smoked in Last 30 Days: Yes e-Cigarette/Vaping Use: Never Used Second Hand Smoke Exposure: No Use of substances other than those prescribed or required for medical reasons: Yes Substance Use Type: Marijuana Substance Use Frequency: Chronic Longstanding Advance Directives: No Advance Directives Information Provided: No Patient : No service: No Current occupational status: employed 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 [employer] Current occupational exposures/hazards: No Physical Exam ED Vital Signs: Vital Signs - 24 hr 03/20/23 06:29 Temperature 98.2 F Pulse Rate 70 Respiratory Rate 18 Blood Pressure 127/76 Pulse Oximetry 97 Oxygen Delivery Method Room Air BMI result Body Mass Index 29.4 Const General: cooperative, no acute distress, alert and awake Nutritional Appearance: well nourished Orientation/consciousness: patient oriented x3 Limitations: no limitations HENMT Head: Yes normal to inspection and Yes atraumatic Ears: hearing grossly normal bilaterally and external ears normal General nose exam: Normal external nose present, no nasal discharge noted and no epistaxis Face and sinus: Yes normal facial exam, No abrasion and No laceration Mouth: Normal oral and palatal mucosa present, no drooling and no muffled voice Eyes General: appearance normal, both eyes and all related structures Periorbital: periorbital findings normal Eyelids: Yes eyelids normal Conjunctivae: conjunctivae normal Pupils: Equal, round and reactive pupils present EOM: EOMs intact bilaterally Neck Neck: Yes normal visual inspection, Yes full ROM and Yes no lymphadenopathy Chest Chest palpation & inspection: normal inspection of the chest Resp Effort & Inspection: normal respiratory effort and able to speak in complete sentences GI Inspection: Yes normal to inspection Neuro General: patient oriented x3 and moves all extremities Cranial nerves: Yes Equal, round and reactive pupils present Cognition (Neuro): normal cognition Motor exam (neuro): 5/5 motor strength present throughout Sensory Exam: Normal double simultaneous stimulation for sensation Coordination: [id number] test normal Extrem General: Yes normal to inspection, Yes full ROM and Yes capillary refill normal Psych Appearance: grossly normal Mental Status: mental status grossly normal Affect: normal affect Attitude: cooperative Thought process: Normal thought process present Thought content: Normal thought content present Insight: Good insight present (Psych) Medications Administered Discontinued Medications Generic Name Dose Route Start Last Admin Trade Name Freq PRN Reason Stop Dose Admin Ketorolac Tromethamine 15 mg 03/20/23 06:52 03/20/23 07:07 Ketorolac Tromethamine 15 Mg/Ml Vial IM 03/20/23 06:53 15 mg ONCE ONE Administration Medical Decision Making Medical Decision Making MDM Narrative: Patient is a 47 year old assigned female at with a history of chronic right ankle pain presenting to the emergency department today with right ankle pain. Patient's physical exam was unremarkable. I explained my physical exam findings to the patient. I answered all questions asked by the patient. Patient received IM Toradol which she stated helped her symptoms significantly. I stressed the importance of the patient taking her medication as prescribed. I stressed the importance of the patient following up with her primary care provider, an orthopedic provider, and a pain specialist. I stressed the importance of the patient returning to the emergency department immediately if her symptoms were to worsen or if she were to develop any dizziness, shortness of breath, difficulty breathing, chest pain, blurry vision, loss of vision, nausea, vomiting, abdominal pain, fever, chills, back pain, or any other complaints. Patient verbalized agreement and understanding with this treatment plan and discharge. Differential Diagnosis Differential Diagnoses: The differential diagnosis associated with the presentation includes Chronic right ankle pain Discharge Plan Discharge Clinical Impression: Chronic ankle pain Patient Disposition: Home, Self-Care Instructions: Chronic Pain (ED) Additional Instructions: Follow up with your primary care provider, an orthopedist, and a pain specialist. Return to the emergency department immediately if your symptoms worsen or if you develop any dizziness, shortness of breath, difficulty breathing, chest pain, blurry vision, loss of vision, nausea, vomiting, abdominal pain, fever, chills, back pain, or any other complaints. Prescriptions: No Action acetaminophen [Tylenol Extra Strength] 500 mg tablet 1,000 mg PO QID PRN (Reason: fever or pain) Qty: 14 0RF escitalopram oxalate 10 mg tablet 10 mg PO DAILY 90 Days Qty: 90 2RF cholecalciferol (vitamin D3) 50 mcg (2,000 unit) capsule 50 mcg PO DAILY 30 Days Qty: 30 11RF albuterol sulfate 90 mcg/actuation HFA aerosol inhaler 1 inh inhalation QID PRN (Reason: shortness of breath or wheezing) Qty: 8.5 0RF docusate sodium 100 mg capsule 100 mg PO BEDTIME Qty: 90 3RF sennosides [Natural Senna Laxative] 8.6 mg tablet 17.2 mg PO BEDTIME Qty: 60 3RF Referrals: [facility] [place] Pain Management [Provider Group] (Call to establish and follow up with a pain specialist. ) Vianca Zelaya MD [Primary Care Provider] - Stand Alone Forms: Work/School Release Interventions: ED Discharge Assessment Last Done: 03/20/23 07:10 Discharge Date/Time: 03/20/23 07:11 Print Language: Armenian
[2023-03-20] MEDS: Ketorolac Tromethamine 15 MG/ML VIAL IM (07:07)
== END 2023-03-20 07:11 | disposition home or self-care (01) ==
PROVIDERS: Emergency Provider Internal Medicine; PCP Internal Medicine
DX: M25.571 Pain in right ankle and joints of right foot (principal); F17.210 Nicotine dependence, cigarettes, uncomplicated; Z71.6 Tobacco abuse counseling; Z79.899 Other long term (current) drug therapy
CPT/HCPCS: 96372; 99284; J1885

== ENCOUNTER 2023-03-29 13:59 | Outpatient (AMB) | payer OTHER, SELFPAY ==
--- NOTE | 2023-03-29 14:15 | MHC.OFFVIS ---
Intake Vital Signs 03/29/23 14:16 Height 5 ft 6 in Weight 182 lb 2 oz BMI 29.4 BP 145/80 H Blood Pressure Location Lt brachial Position Sitting Respiration 18 Pulse 70 Pulse Source Pulse Oximeter Pulse Oximetry (%) 96 Oxygen Delivery Method Room Air Intake Visit Reasons: Pain in ankle & joints of right foot/lvm Allergies No Known Allergies [No Known Allergies*] Allergy (Verified 03/29/23 14:15) HPI HPI Comments History of Present Illness Details Xiao is a very pleasant 47-year-old female who presents to the office today for evaluation management of her chronic right ankle pain. Patient reports that approximately 4 or 5 years ago she broke her right ankle and she has been suffering with pain since. She states that she did 7 months of treatment to recover from the break but yet she still suffers with daily pain. She states the pain is excruciating with walking, rated today as 9/10. She is currently taking Tylenol and nonsteroidal anti-inflammatory medication for the pain with minimal improvement. She has completed physical therapy 3 times in the past without improvement of her pain. She recently was evaluated by home staging specialist and had serial injections over 3 weeks time. She states that after the 3rd round of injections her pain was worse than it had ever been she missed work and could not walk. After that she declined to follow-up with the provider. Patient has been to the emergency room several times for this chronic pain. She reports being frustrated that nobody is doing anything to help her ?. In terms of muscle damage condition is described as aching, stabbing, sharp, squeezing, tingling, pins and needles. Pain is negatively impacting patient's walking, enjoyment of life, general activity and normal work. [facility] Medical History Blurry vision Physical exam Right ankle sprain Cough Tension headache Mild persistent asthma, uncomplicated Moderate recurrent major depression Vitamin D deficiency Pituitary microadenoma Hand pain, right COVID-19 ruled out Nail fungus Acute carpal tunnel syndrome Surgical History History of umbilical hernia repair History of tubal ligation Family History Father Medical history unknown Mother Uterine cancer Maternal Aunt Hypertension Maternal Grandfather Hypertension Diabetes Social History Housing: Apartment Alcohol intake: current Alcohol intake frequency: holidays/special occasions only Patient Tobacco Use Status: Current everyday Tobacco user Tobacco use type: Cigarette Cigarettes Per Day: 3 e-Cigarette/Vaping Use: Never Used Second Hand Smoke Exposure: No Substance Use Type: Marijuana service: No Current occupational status: employed 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 Answers questions appropriately. Fully engaged in examination. Skin: warm, dry, intact HEENT: Normocephalic. Hearing intact. Cardiac: External chest normal in appearance. Respiratory: No cough, audible wheezing or stridor. Abdomen: without gross distension. MS: No obvious swelling or deformities. Able to transition from sit to stand unassisted. Ambulates with steady gait Right Ankle: no redness, warmth or swelling noted. No loss of hair noted, no changes to skin color or temperature. Full ROM. Neurological: Oriented to person, place, time and situation. Thought process intact. No gait abnormalities appreciated. Psychiatric: Appropriate mood and affect. Good judgment and insight. Results Reviewed Results Reviewed: 11/22/2022 XR/XR ankle RT min 3V FINDINGS: There is a moderate size calcaneal heel and anterior distal tibial spurring. The ankle mortise and subtalar joints are normal. No acute fracture or dislocation seen. The soft tissues are normal IMPRESSION: Moderate size calcaneal heel and anterior distal tibial at the talotibial joint spurring. Assessment & Plan Assessment & Plan (1) Right ankle pain: Code(s): M25.571 - Pain in right ankle and joints of right foot Plan Xiao is a very pleasant 47-year-old female who presented to the office today for evaluation and management of her chronic right ankle pain. Patient has exhausted conservative therapy including NSAIDs, muscle relaxers, PT and steroid injections. Discussed options for treatment including diagnostic interventional testing, steroid injections, peripheral nerve stimulation with Sprint, RFA and more permanent neuromodulation. Informational pamphlets provided. Gabapentin 100mg po TID. Excuse not provided to patient today for work Will schedule for ultrasound-guided diagnosis right sciatic nerve block. If patient reports positive results of diagnostic nerve block will plan for right sciatic nerve sprint PNS. All questions and concerns have been answered and patient agrees with the plan. Follow up after injections and sooner if needed. Medications: New gabapentin 100 mg PO TID 90 caps 2RF Coding Level of Care Code New Pt Level 4 (59577) Diagnoses Right ankle pain M25.571
[2023-03-29 14:16] VITALS: BP 145/80; PULSE 70; RESP 18; O2SAT 96; BMI 29.4
== END 2023-03-29 14:44 | disposition home or self-care (01) ==
PROVIDERS: PCP Internal Medicine; Visit Provider Registered Nurse Emergency
DX: M25.571 Pain in right ankle and joints of right foot (principal)
CPT/HCPCS: 99204

== ENCOUNTER → 2023-03-29 13:59 | Outpatient (BNVA) | payer OTHER, SELFPAY | PROVIDERS: PCP Internal Medicine; Visit Provider Registered Nurse Emergency | DX: M25.571 Pain in right ankle and joints of right foot (principal) | CPT/HCPCS: 99202 ==

== ENCOUNTER 2023-05-16 06:13 | Outpatient (REF) | payer OTHER, SELFPAY | END 2023-05-16 06:14 | disposition home or self-care (01) | LOC: CF 06:13 | PROVIDERS: Visit Provider Internal Medicine | DX: Z13.89 Encounter for screening for other disorder (principal) ==

== ENCOUNTER 2023-09-24 16:46 | Outpatient (AMB) | payer OTHER, SELFPAY ==
[2023-09-24 16:51] VITALS: BP 142/90; BMI 29.7
--- NOTE | 2023-09-24 16:51 | A.OFFPC_ITS ---
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: No Accompanied by: Self / Same As Patient Allergies No Known Allergies [No Known Allergies*] Allergy (Verified 09/24/23 17:25) Medication List - Last Reconciled 09/24/23 by Vianca Jonas MD albuterol sulfate 90 mcg/actuation 1 inh inhalation QID PRN cholecalciferol (vitamin D3) 50 mcg PO DAILY 30 days docusate sodium 100 mg PO BEDTIME escitalopram oxalate 10 mg PO DAILY 90 days gabapentin 100 mg PO TID sennosides (Natural Senna Laxative) 17.2 mg (2 x 8.6 mg) PO BEDTIME Tobacco use date assessed: 09/24/23 Dental Screening Dental Screen Date: 09/24/23 Did you have a dental visit in the last 12 months?: No Did you have a dental problem in the last 6 months where you did not have access to dental care?: No Was dental information given to patient?: Patient has dentist HPI HPI Comments History of Present Illness Details This is a 48-year-old female with moderate recurrent major depression and pituitary microadenoma that comes for her physical exam. I will restart her on escitalopram for her depression. Last MRI of the brain was in 2021 and this will be repeated. She complains of some blurry vision but visual field deficits are normal. She also has galactorrhea that has been present for years. Last mammogram was 2021. Last Pap smear was about 4 years ago. Denies any chest pain or shortness on breath. ON LICENSE OF [facility] Medical History Blurry vision Physical exam Right ankle sprain Cough Tension headache Mild persistent asthma, uncomplicated Moderate recurrent major depression Vitamin D deficiency Pituitary microadenoma Hand pain, right COVID-19 ruled out Nail fungus Acute carpal tunnel syndrome Surgical History History of umbilical hernia repair History of tubal ligation Family History Father Medical history unknown Mother Uterine cancer Maternal Aunt Hypertension Maternal Grandfather Hypertension Diabetes Social History Housing: Apartment Alcohol intake: current Alcohol intake frequency: holidays/special occasions only Patient Tobacco Use Status: Current everyday Tobacco user Tobacco use type: Cigarette Cigarettes Per Day: 15 e-Cigarette/Vaping Use: Never Used Second Hand Smoke Exposure: No Substance Use Type: Marijuana service: No Current occupational status: employed 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 1. Little interest or pleasure in doing things: nearly every day 2. Feeling down, depressed, or hopeless: nearly every day 3. Trouble falling or staying asleep, or sleeping too much: nearly every day 4. Feeling tired or having little energy: nearly every day 5. Poor appetite or overeating: more than half the days 6. Feeling bad about yourself - or that you are a failure or have let yourself or your family down: more than half the days 7. Trouble concentrating on things, such as reading the newspaper or watching television: several days 8. Moving or speaking so slowly that other people could have noticed. Or the opposite - being so fidgety or restless that you have been moving around a lot more than usual: more than half the days 9. Thoughts that you would be better off or of hurting yourself in some way: not at all Total score: 19 Depression Screening Interpretation: Positive Depression Screening Follow-up: Existing condition, New Medication prescribed and Follow-up Visit Requested Depression Screening Done: Yes 16609 - PHQ-9 Billing: Yes Source: Developed by Drs. Darrel Brown, Emma Mcghee, Xavier Baxter and colleagues, with an educational rad from [employer]. Thrive Questionnaire Date Thrive assessed: 09/24/23 I am a: Patient What is your living situation today?: I have a steady place to live Within the past 12 months, did the food you bought not last and you didn't have the money to get more?: Never true Within the past 12 months, did you worry whether your food would run out before you got money to buy more?: Never true Do you have trouble paying for medicines?: No Do you have trouble getting transportation to medical appointments?: No Do you have trouble paying your heating and electricity bill?: No Do you have trouble taking care of your child, family member or friend?: No Do you have trouble with day-to-day activities such as bathing, preparing meals, shopping, managing finances, etc.?: No Are you currently unemployed and looking for a job?: No Are you interested in more education?: No Please select the resources that you would like help with: None Currently or been in a relationship where the following occur: no concerns reported THRIVE Score: 0 AUDIT C Alcohol Use Questionnaire (AUDIT-C) 1. How often do you have a drink containing alcohol?: 2-4 times a month 2. How many drinks containing alcohol do you have on a typical day when you are drinking?: 1 or 2 3. How often do you have six or more drinks on one occasion?: Never Total Score: 2 BHAVYA-7 AMB Questionnaire BHAVYA-7 Date BHAVYA - 7 assessed: 09/24/23 Feeling nervous, anxious, or on edge: 3 = Nearly every day Not being able to stop or control worryin = Nearly every day Worrying too much about different things: 3 = Nearly every day Trouble relaxin = Several days Being so restless that it is hard to sit still: 3 = Nearly every day Becoming easily annoyed or irritable: 3 = Nearly every day Feeling afraid as if something awful might happen: 1 = Several days Total BHAVYA-7 score (0-4 normal; 5-9 mild; 10-14 moderate; 15-21 severe): 17 Source: Developed by Drs. Darrel Brown, Emma Mcghee, Xavier Baxter and colleagues, with an educational rad from [employer]. BHAVYA-7 Assessment Billing BHAVYA-7 Assessment Tool: BHAVYA-7 Assessment 64842 Review of Systems Const All systems reviewed & are unremarkable except as noted in HPI and below Card Denies chest pain at rest, Denies chest pain with activity, Denies edema, Denies irregular heart rhythm, Denies claudication, Denies dyspnea, Denies dyspnea on exertion, Denies orthopnea, Denies paroxysmal nocturnal dyspnea and Denies slow heart rate Resp Denies cough, Denies dyspnea and Denies dyspnea on exertion Musc Denies abnormal gait, Denies atrophy, Denies deformity and Denies limited range of motion Skin/Breast Denies bleeding lesions, Denies changing lesions and Denies rash Neuro Denies abnormal gait and Denies lack of coordination Psych Reports depression Physical exam (Primary Care) Vital Signs: Last Vital Signs BP 142/90 H 09/24/23 16:51 BMI result Body Mass Index 29.7 Tobacco/Smoking Status: Tobacco use Status Tobacco use date assessed 09/24/23 09/24/23 16:59 Patient Tobacco Use Status Current everyday Tobacco 09/24/23 16:59 Tobacco use type Cigarette 09/24/23 16:59 e-Cigarette/Vaping Use Never Used 09/24/23 16:59 Are you ready to quit: No Tobacco cessation counseling provided: Yes Items discussed: QuitWorks Relapse Prevention: discussed the importance of a supportive environment, discussed extending NRT, discussed negative mood or depression after quitting, weight gain after smoking is common and discussed dietary, exercise and/or lifestyle changes Number of minutes spent counselin CPT code: 03307 - 4-10 Minutes PHQ-9: PHQ-9 Score PHQ-9: Total score 19 09/24/23 16:59 Depression Screening Interpretation: Positive Depression Screening Follow-up: Existing condition, New Medication prescribed and Follow-up Visit Requested Thrive Assessment: Date of Thrive Assessment Date Thrive assessed 09/24/23 09/24/23 16:59 Currently or been in a relationship where the following occur: no concerns reported Const Orientation/consciousness: patient oriented x3 HENMT Head: Yes normal to inspection, Yes normocephalic and Yes atraumatic Ears: external ears normal General nose exam: Normal external nose present and No nasal discharge present Face and sinus: Yes sinuses nontender Mouth: lip normal Eyes General: appearance normal, both eyes and all related structures Eyelids: Yes eyelids normal Conjunctivae: conjunctivae normal Neck Neck: Yes normal visual inspection and Yes supple Resp Effort & Inspection: normal respiratory effort Auscultation: clear to auscultation bilaterally Cardio Jugular venous distension: no JVD Rate: regular rate Rhythm: regular rhythm Heart sounds: S1 normal heart sound present and S2 normal heart sound present GI Inspection: Yes normal to inspection Palpation (GI): Soft to palpation and nontender Auscultation: normal bowel sounds Skin General skin exam: no rashes or lesions noted Neuro General: patient oriented x3 and no focal motor deficits Extrem General: Yes full ROM Psych Appearance: grossly normal Assessment and Plan Assessment & Plan (1) Physical exam: Comment: COVID IZs X 2. She will get flu shot later. Due for eye exam. [facility]. Will f/u with Dr. Najera re: pap. Last testing in 08/2018. Code(s): Z00.00 - Encounter for general adult medical examination without abnormal findings Plan: Repeat in a year. (2) Moderate recurrent major depression: Code(s): F33.1 - Major depressive disorder, recurrent, moderate Plan: Restart escitalopram. (3) Pituitary microadenoma: Code(s): D35.2 - Benign neoplasm of pituitary gland Plan: MRI of the brain ordered. Orders: Orders MR brain wo con w neuroquant Today D35.2 - Benign neoplasm of pituitary gland MM screening mammo BI Today Z12.31 - Encounter for screening mammogram for malignant neoplasm of breast Lipid Panel Today E78.5 - Hyperlipidemia, unspecified, Z00.00 - Encounter for general adult medical examination without abnormal findings Prolactin Today D35.2 - Benign neoplasm of pituitary gland Vitamin D 25-OH Total Today E55.9 - Vitamin D deficiency, unspecified Comprehensive [place]. Panel Fast Today Z00.00 - Encounter for general adult medical examination without abnormal findings Referrals [employer]GER Referral Z12.4 - Encounter for screening for malignant neoplasm of cervix Ophthalmology Referral H53.8 - Other visual disturbances Medications: Refilled escitalopram oxalate 10 mg PO DAILY 90 days 90 tabs 2RF sennosides (Natural Senna Laxative) 17.2 mg (2 x 8.6 mg) PO BEDTIME 60 tabs 3RF constipation K59.00 - Constipation, unspecified cholecalciferol (vitamin D3) 50 mcg PO DAILY 30 days 30 caps 11RF D35.2 - Benign neoplasm of pituitary gland albuterol sulfate 90 mcg/actuation 1 inh inhalation QID PRN 8.5 grams 0RF shortness of breath or wheezing gabapentin 100 mg PO TID 90 caps 2RF docusate sodium 100 mg PO BEDTIME 90 caps 3RF K59.00 - Constipation, unspecified Coding Level of Care Code Est Pt Prev Care 40-64y(25130) Diagnoses Physical exam Z00.00 Moderate recurrent major depression F33.1 Pituitary microadenoma D35.2 Additional Codes BHAVYA-7 Assessment Billing - BHAVYA-7 Assessment Tool: BHAVYA-7 Assessment 78620 ([id number]) Vital Signs *Quality* - CPT code: 32761 - 4-10 Minutes ([id number]) Time Spent (min) 35
== END 2023-09-24 17:36 | disposition home or self-care (01) ==
PROVIDERS: PCP Internal Medicine; Visit Provider Internal Medicine
DX: Z00.00 Encounter for general adult medical examination without abnormal findings (principal); F33.1 Major depressive disorder, recurrent, moderate; D35.2 Benign neoplasm of pituitary gland
CPT/HCPCS: 96127; 99396

== ENCOUNTER 2023-10-02 22:19 | Emergency (ER) | payer OTHER, SELFPAY ==
--- NOTE | ~2023-10-02 | US_ITS ---
EXAMINATION: US PELVIS CLINICAL INFORMATION: Lower abdominal pain. COMPARISON: CT abdomen pelvis same date TECHNIQUE: Ultrasound of the pelvis is performed using both transabdominal and transvaginal transducers along with Doppler. Transvaginal imaging is performed due to inadequate visualization transabdominally. FINDINGS: Uterus: The uterus is anteverted and measures 9.2 x 4.1 x 5.0 cm. No focal uterine masses. Small amount of fluid is observed within the endometrial canal. The double wall endometrial thickness is 9 mm. The uterus is smooth in contour and has normal myometrial echogenicity. No visible fibroid. Adnexa: Both ovaries are visualized. There is normal color flow to the adnexa. There is no ovarian torsion. There is no pelvic ascites or fluid collection. Right ovary measures 2.0 x 2.4 x 1.5 cm. Left ovary measures 2.6 x 2.6 x 1.8 cm. Physiologic cyst at 13 x 9 x 14 mm. There are no dilated tubular structures in the right adnexal areas to suggest a hydrosalpinx or pyosalpinx. Incidental note is made of a complex nabothian cyst, at 6 mm. US/US pelvic and transvaginal IMPRESSION: Unremarkable study.
--- NOTE | ~2023-10-02 | CT_ITS ---
EXAMINATION: CT ABDOMEN AND PELVIS WITH CONTRAST CLINICAL INFORMATION: Abdominal pain. COMPARISON: 11/11/2022 TECHNIQUE: Multidetector volumetric images were obtained from the superior aspect of the liver through the pubic symphysis following administration 85 mL of Omnipaque 350 intravenous contrast. Sagittal and coronal reformatted images were obtained on the technologist's workstation. Oral contrast: No This CT examination was performed using dose optimization techniques as appropriate, variously including the following: *Automated exposure control *Adjustment of mA and/or kV according to patient size (this includes techniques or standardized protocols for targeted exams where dose is matched to indication/reason for exam; i.e. extremities or head) *Use of iterative reconstruction technique DLP: 666 mGy-cm FINDINGS: LUNG BASES: The visualized lung bases are unremarkable. LIVER, GALLBLADDER, AND BILIARY TREE: The liver is normal in size, shape, and attenuation. No focal hepatic lesion or biliary ductal dilatation is present. The gallbladder is unremarkable with no evidence of radiopaque gallstones, gallbladder wall thickening, or obvious pericholecystic inflammatory changes. PANCREAS: Unremarkable. SPLEEN: Unremarkable. ADRENAL GLANDS: Unremarkable. KIDNEYS AND URETERS: The kidneys are normal in size, shape, and attenuation. No hydronephrosis, hydroureter, or calculi seen. No perinephric stranding. BLADDER: Unremarkable. GASTROINTESTINAL TRACT: There are diverticula of the descending and sigmoid colon without evidence for acute diverticulitis. The appendix is visualized and is within normal limits. ABDOMINAL WALL: No significant hernia is appreciated. LYMPH NODES: Normal. VASCULAR: Unremarkable. PELVIC VISCERA: There are distended tubular structures within the adnexal regions measuring up to 9 mm. OSSEOUS STRUCTURES: Unremarkable. CT/CT abdomen pelvis w IV con IMPRESSION: 1. Distended tubular structures within the adnexal regions measuring up to 9 mm. This could represent hydrosalpinx or pyosalpinx. 2. Diverticulosis without evidence of acute diverticulitis. Fleischner guidelines were followed.
[2023-10-02 22:27] VITALS: BP 148/60; PULSE 98; O2SAT 98
[2023-10-02 22:44] VITALS: BP 116/71; PULSE 74; RESP 16; TEMP 36.7; O2SAT 94; BMI 29.4
[2023-10-02 23:04] LABS: MANUAL DIFF FLAG NO
[2023-10-02 23:05] LABS: Basophils Percent Auto 0.4 % (0-2); Eosinophils Absolute Auto 0.1 X10*3/uL (0.0-0.4); Eosinophils Percent Auto 1.3 % (0-4); Hematocrit 39.3 % (37.0-47.0); Hemoglobin 13.5 g/dl (12.0-16.0); Imm Gran Abs Auto 0.05 X10*3/uL (0.00-0.03); Imm Gran Pct Auto 0.5 % (0.0-0.4); Lymphocytes Absolute Auto 2.1 X10*3/uL (1.2-4.9); Lymphocytes Percent Auto 18.9 % (20-40); Mean Corpuscular HGB Conc 34.4 g/dl (31.0-35.0); Mean Corpuscular Hemoglobin 32.4 pg (27.0-33.0); Mean Corpuscular Volume 94.2 fL (80.0-98.0); Mean Platelet Volume 9.8 fL (9.4-12.3); Monocytes Absolute Auto 0.7 X10*3/uL (0.1-1.2); Monocytes Percent Auto 6.6 % (2-11); Neutrophils Percent Auto 72.3 % (45-73); Platelet Count 328 X10*3/uL (160-400); Red Blood Count 4.17 X10*6/uL (4.20-5.50); Red Cell Distribution Width 12.6 % (11.0-16.0); White Blood Count 11.1 X10*3/uL (4.8-10.8)
[2023-10-02 23:10] LABS: Appearance Urine Cloudy; Color Urine Yellow; Glucose Urine UA Negative (Negative); Leukocyte Esterase Urine Negative (Negative); Nitrite Urine Negative (Negative); PH 5.5 (5.0-9.0); Specific Gravity - Urine 1.025 (1.005-1.025); Urine Blood Negative (Negative); Urine Ketones Negative (Negative); Urine Protein Negative (Neg-Trace)
[2023-10-02 23:35] LABS: Alanine Aminotransferase 11 U/L (0-31); Albumin Level 3.9 g/dL (3.5-5.0); Aspartate Amino Transferase 12 U/L (5-31); Bilirubin Total 0.1 mg/dL (0.0-1.0); Blood Urea Nitrogen 14 mg/dL (9-16); Calcium 9.5 mg/dL (8.4-10.2); Carbon Dioxide 26 mmol/L (22-29); Chloride 105 mmol/L (96-108); Creatinine Clr Calc Pharmacy 107.2; Estimated Glomerular Filt Rate > 60; Glucose Random 111 mg/dL (60-115); Lipase 37 U/L (8-78); Potassium 3.9 mmol/L (3.3-5.1); Sodium 139 mmol/L (135-145); Total Protein 6.7 g/dL (6.5-8.0)
[2023-10-02 23:36] LABS: Alkaline Phosphatase 68 U/L (39-117); Anion Gap 12 (12-20)
[2023-10-03 02:12] VITALS: BP 132/78; PULSE 72; RESP 18; TEMP 36.9; O2SAT 97
--- NOTE | 2023-10-03 04:15 | ED_ITS ---
HPI - Abdominal Pain General Chief Complaint: Abdominal Pain Stated Complaint: abd pain all 4 quadrants Time Seen by Provider: 10/03/23 03:16 Source: patient Mode of arrival: ambulatory Limitations: no limitations History of Present Illness ED Provider: Dr Nugent HPI narrative: 48-year-old female who reports 2 days of lower abdominal discomfort, worsens with coughing she does state she had a bowel movement today, also reports some nausea, denies urinary symptoms or sick contacts. Related Data Previous Rx's ?Medication ?Instructions ?Recorded Ventolin HFA 90 mcg/actuation 2 puff inhalation Q6H PRN 09/24/23 aerosol inhaler (albuterol sulfate) shortness of breath or wheezing 30 days #18 grams albuterol sulfate 90 mcg/actuation 1 inh inhalation QID PRN shortness 09/24/23 aerosol inhaler of breath or wheezing #8.5 grams cholecalciferol (vitamin D3) 50 50 mcg PO DAILY 30 days #30 caps 09/24/23 mcg (2,000 unit) capsule docusate sodium 100 mg capsule 100 mg PO BEDTIME #90 caps 09/24/23 escitalopram oxalate 10 mg tablet 10 mg PO DAILY 90 days #90 tabs 09/24/23 gabapentin 100 mg capsule 100 mg PO TID #90 caps 09/24/23 sennosides 8.6 mg tablet (Natural 17.2 mg (2 x 8.6 mg) PO BEDTIME 09/24/23 Senna Laxative) constipation #60 tabs Allergies Allergy/AdvReac Type Severity Reaction Status Date / Time No Known Allergies Allergy Verified 10/02/23 22:45 [No Known Allergies*] Review of Systems Review of Systems Pertinent positives and negatives as stated in HPI PMFSH Past Medical History Source: nursing notes reviewed Medical History Blurry vision Physical exam Right ankle sprain Cough Tension headache Mild persistent asthma, uncomplicated Moderate recurrent major depression Vitamin D deficiency Pituitary microadenoma Hand pain, right COVID-19 ruled out Nail fungus Acute carpal tunnel syndrome Surgical History History of umbilical hernia repair History of tubal ligation Family History Family History Father Medical history unknown Mother Uterine cancer Maternal Aunt Hypertension Maternal Grandfather Hypertension Diabetes Social History Social History Housing: Apartment Alcohol intake: current Alcohol intake frequency: holidays/special occasions only Patient Tobacco Use Status: Current everyday Tobacco user Tobacco use type: Cigarette Cigarettes Per Day: 15 Smoked in Last 30 Days: Yes e-Cigarette/Vaping Use: Never Used Second Hand Smoke Exposure: No Use of substances other than those prescribed or required for medical reasons: Yes Substance Use Type: Marijuana Substance Use Frequency: Chronic Longstanding Advance Directives: No Advance Directives Information Provided: No Patient : No service: No Current occupational status: employed 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 GENERAL: Well developed, well nourished, in no acute distress. HEAD: Normocephalic/atraumatic EYES: PERRLA, EOMI EARS: Ext canals without abnormality NOSE: Nares patent bilateral OROPHARYNX: no oral lesions noted, posterior pharynx clear NECK: Supple, no adenopathy LUNGS: Normal breath sounds. No adventitious sounds or accessory muscle use. SpO2<97> CARDIOVASCULAR: Regular rate and rhythm without noted murmurs, no JVD or lower extremity edema. ABDOMEN: Soft, lower abd pain/LLQ, non-distended with bowel sounds. MUSCULOSKELETAL: No tenderness, deformities, or effusions noted on gross inspection. EXTREMITIES: No cyanosis, clubbing or edema. SKIN: Inspection of the skin reveals no rashes NEUROLOGIC: Alert and oriented x 4. Strength and sensation to light touch were grossly intact x 4. Medical Decision Making Medical Decision Making MDM Narrative: 48-year-old female with history and clinical presentation, DDX: UTI, diverticulitis, constipation, lower clinical suspicion for hernia or obstruction. I reviewed all investigations and hematologic indices show a subtle bump in leukocytosis but no anemia or thrombocytopenia. Chemistry indices are negative for YAHIR/electrolyte or liver enzyme derangements. Urinalysis negative for UTI or hematuria. CT scan demonstrates tubular structures, hydro versus pyosalpinx, patient is afebrile and has abdominal elevation leukocytosis. SIgned out to MYRIAM Perez f/darrell pelvic US Differential Diagnosis Differential Diagnoses: The differential diagnosis associated with the presentation includes Please see the discussion above Admission/Observation Consideration of admission/observation: Escalation of care including admission/observation considered Please see the discussion above Lab Data MDM Lab Attestation statement: I reviewed the patient's lab results. Please see the discussion above 10/02/23 22:57 10/02/23 22:57 Labs: Lab Results 10/02/23 Range/Units 22:57 WBC 11.1 H (4.8-10.8) X10*3/uL RBC 4.17 L (4.20-5.50) X10*6/uL Hgb 13.5 (12.0-16.0) g/dl Hct 39.3 (37.0-47.0) % MCV 94.2 (80.0-98.0) fL MCH 32.4 (27.0-33.0) pg MCHC 34.4 (31.0-35.0) g/dl RDW 12.6 (11.0-16.0) % Plt Count 328 (160-400) X10*3/uL MPV 9.8 (9.4-12.3) fL Immature Gran % (Auto) 0.5 H (0.0-0.4) % Neut % (Auto) 72.3 (45-73) % Lymph % (Auto) 18.9 L (20-40) % [place] % (Auto) 6.6 (2-11) % Eos % (Auto) 1.3 (0-4) % Baso % (Auto) 0.4 (0-2) % Lymph # (Auto) 2.1 (1.2-4.9) X10*3/uL [place] # (Auto) 0.7 (0.1-1.2) X10*3/uL Eos # (Auto) 0.1 (0.0-0.4) X10*3/uL Baso # (Auto) 0.0 (0.0-0.2) X10*3/uL Abs Immat Gran (auto) 0.05 H (0.00-0.03) X10*3/uL Absolute Neuts (auto) 8.0 (2.0-8.3) x10*3/uL Absolute Nucleated RBC 0.000 (0.0-0.012) X10*3/uL Nucleated RBC % (auto) 0.0 (0.0-0.2) /100WBC Sodium 139 (135-145) mmol/L Potassium 3.9 (3.3-5.1) mmol/L Chloride 105 (96-108) mmol/L Carbon Dioxide 26 (22-29) mmol/L Anion Gap 12 (12-20) BUN 14 (9-16) mg/dL Creatinine 0.71 (0.5-1.4) mg/dL Estim Creat Clear Calc 107.2 Estimated GFR > 60 Random Glucose 111 (60-115) mg/dL Calcium 9.5 D (8.4-10.2) mg/dL Total Bilirubin 0.1 (0.0-1.0) mg/dL AST 12 (5-31) U/L ALT 11 (0-31) U/L Alkaline Phosphatase 68 (39-117) U/L Total Protein 6.7 (6.5-8.0) g/dL Albumin 3.9 (3.5-5.0) g/dL Lipase 37 (8-78) U/L Urine Color Yellow Urine Appearance Cloudy Urine pH 5.5 (5.0-9.0) Ur Specific [place] 1.025 (1.005-1.025) Urine Protein Negative (Neg-Trace) mg/dL Urine Glucose (UA) Negative (Negative) mg/dL Urine Ketones Negative (Negative) mg/dL Urine Blood Negative (Negative) Urine Nitrite Negative (Negative) Ur Leukocyte Esterase Negative (Negative) Radiology Impression Discussion of test interpretation with radiology: I have reviewed the radiologist's reading. Radiologist Impression: Please see the discussion above External Record Review External record reviewed: Outpatient record and Prior outpatient labs Medications Administered Discontinued Medications Generic Name Dose Route Start Last Admin Trade Name Freq PRN Reason Stop Dose Admin Sodium Chloride 1,000 mls @ 999 mls/hr 10/03/23 04:15 10/03/23 05:27 Ns IV 10/03/23 05:15 Infused .Q1H1M CARLITOS Infusion Iohexol 85 ml 10/03/23 04:52 10/03/23 04:52 Iohexol 350 Mg/Ml 100 Ml Infus..Btl IV 10/03/23 04:53 85 ml ONCE ONE Administration Critical Care Time Critical Care Time Critical Care Time: Yes Total Critical Care Time: 45 Attestation: I personally attest to this time spent taking care of the patient. Discharge Plan Discharge Clinical Impression: Abdominal pain Patient Disposition: Still a Patient Prescriptions: No Action albuterol sulfate 90 mcg/actuation HFA aerosol inhaler 1 inh inhalation QID PRN (Reason: shortness of breath or wheezing) Qty: 8.5 0RF cholecalciferol (vitamin D3) 50 mcg (2,000 unit) capsule 50 mcg PO DAILY 30 Days Qty: 30 11RF docusate sodium 100 mg capsule 100 mg PO BEDTIME Qty: 90 3RF escitalopram oxalate 10 mg tablet 10 mg PO DAILY 90 Days Qty: 90 2RF gabapentin 100 mg capsule 100 mg PO TID Qty: 90 2RF sennosides [Natural Senna Laxative] 8.6 mg tablet 17.2 mg PO BEDTIME Qty: 60 3RF albuterol sulfate [Ventolin HFA] 90 mcg/actuation HFA aerosol inhaler 2 puff inhalation Q6H PRN (Reason: shortness of breath or wheezing) 30 Days Qty: 18 2RF Print Language: Nauruan
[2023-10-03] MEDS: 0.9 % Sodium Chloride 1,000 ML 999 ML IV (04:22)
[2023-10-03] MEDS: iohexoL 350 MG/ML 100 ML INFUS..BTL 85 ML IV (04:52)
[2023-10-03 05:41] VITALS: BP 112/56; PULSE 72; RESP 14; TEMP 36.6; O2SAT 98
--- NOTE | 2023-10-03 07:50 | PC.NURSE ---
pt off to ultra sound
[2023-10-03 09:59] VITALS: BP 114/58; PULSE 63; RESP 18; TEMP 37.1; O2SAT 96
--- NOTE | 2023-10-03 10:53 | PC.NURSE ---
pt is resisting comfortably at this this time, denies pain
[2023-10-03 11:20] LABS: Bacterial Vaginosis PCR POSITIVE (Negative); Candida Group PCR NOT DETECTED (Not Detect); Candida glab krusei PCR NOT DETECTED (Not Detect); Trichomonas vaginalis PCR NOT DETECTED (Not Detect)
[2023-10-03 11:44] VITALS: BP 114/58; PULSE 63; RESP 18; TEMP 37.1; O2SAT 96
[2023-10-03 11:54] LABS: CT PCR NOT DETECTED (Not Detect.); NG PCR NOT DETECTED (Not Detect.)
== END 2023-10-03 11:46 | disposition home or self-care (01) ==
PROVIDERS: Physician Assistant; Emergency Provider Student in an Organized Health Care Education/Training Program
DX: R10.30 Lower abdominal pain, unspecified (principal); N76.0 Acute vaginitis; B96.89 Other specified bacterial agents as the cause of diseases classified elsewhere; J45.30 Mild persistent asthma, uncomplicated
CPT/HCPCS: 0352U; 0353U; 36415; 74177; 76830; 76856; 80053; 81003; 83690; 85025; 96360; 99284; 99285; Q9967

== ENCOUNTER 2024-03-17 19:48 | Emergency (ER) | payer OTHER, SELFPAY ==
--- NOTE | ~2024-03-17 | XR_ITS ---
EXAMINATION: XR ANKLE, RIGHT CLINICAL INFORMATION: Pain for 5 years. COMPARISON: Right ankle radiographs from 11/22/2022 and 06/26/2021. TECHNIQUE: 3 views of the right ankle (AP, lateral, and oblique views) brain FINDINGS: No acute fracture or dislocation of the right ankle. Chronic healed deformity of prior oblique fracture through the distal fibular diaphysis. Chronic prominent marginal osteophytosis along the anterior aspect of the tibiotalar joint. The ankle mortise remains well aligned. No lytic or sclerotic osseous lesions. Prominent heel spur. No focal soft tissue swelling. No radiopaque foreign bodies. XR/XR ankle RT min 3V IMPRESSION: 1. No acute fracture or dislocation of the right ankle. 2. Chronic healed deformity of prior oblique fracture through the distal fibular diaphysis. Electronically signed by: Moises Rivas DO 03/18/2024 01:05 AM JON GARCIA
[2024-03-17 20:00] VITALS: BP 139/66; PULSE 83; RESP 16; TEMP 37; O2SAT 97; BMI 31.5
--- NOTE | 2024-03-17 20:01 | ED_ITS ---
HPI - General Adult General Chief complaint: Extremity Injury, Lower Stated complaint: R ankle pain, swollen Time Seen by Provider: 03/17/24 21:14 Source: patient and old records reviewed Mode of arrival: ambulatory Limitations: no limitations History of Present Illness ED Provider: FARAZ CORLEY narrative: 48 yo female with PMH of depression and chronic R ankle pain since and injury of the R ankle 3 to 4 years ago she has seen specialist s/p injections and pain management. She works 3rd shift so she takes gabapentin prior to sleep but not during the day. She has no change in her chronic pain she just cannot take it right now and it is not responding to Motrin. She has fevers, rash, new injury MD complaint: ankle pain Onset (ago): year(s) Location: right and lower extremity Radiation: non-radiation Severity: moderate Quality: aching Pain Consistency: constant Relieving factors: immobilization Exacerbating factors: movement Associated symptoms: denies other symptoms Treatments prior to arrival: NSAID Related Data Previous Rx's ?Medication ?Instructions ?Recorded Ventolin HFA 90 mcg/actuation 2 puff inhalation Q6H PRN 09/24/23 aerosol inhaler (albuterol sulfate) shortness of breath or wheezing 30 days #18 grams albuterol sulfate 90 mcg/actuation 1 inh inhalation QID PRN shortness 09/24/23 aerosol inhaler of breath or wheezing #8.5 grams cholecalciferol (vitamin D3) 50 50 mcg PO DAILY 30 days #30 caps 09/24/23 mcg (2,000 unit) capsule docusate sodium 100 mg capsule 100 mg PO BEDTIME #90 caps 09/24/23 escitalopram oxalate 10 mg tablet 10 mg PO DAILY 90 days #90 tabs 09/24/23 gabapentin 100 mg capsule 100 mg PO TID #90 caps 09/24/23 sennosides 8.6 mg tablet (Natural 17.2 mg (2 x 8.6 mg) PO BEDTIME 09/24/23 Senna Laxative) constipation #60 tabs metronidazole 500 mg tablet 500 mg PO BID 7 days #14 tabs 10/03/23 ondansetron 4 mg disintegrating 4 mg PO Q8H PRN nausea and 10/03/23 tablet vomiting #7 tabs tramadol 50 mg tablet 50 mg PO TID PRN pain #14 tabs 03/17/24 Allergies Allergy/AdvReac Type Severity Reaction Status Date / Time No Known Allergies Allergy Verified 03/17/24 20:01 [No Known Allergies*] Review of Systems Review of Systems: Constitutional : No Fever, No Chills ENT/Mouth : No Ear Pain, No Hoarseness, No sore throat Eyes: No Eye Pain, No Swelling, No Redness, No Foreign Body Cardiovascular : No Chest Pain, No SOB Respiratory : No Cough, No Dyspnea Gastrointestinal : No Nausea, No Vomiting, No Diarrhea, No abdominal Pain Genitourinary : No Dysuria, No Hematuria Musculoskeletal : positive joint pain, No Myalgias, pos Joint Swelling Skin : No Skin lacerations, No rash Neuro : No Weakness, No Numbness All other systems reviewed and are negative PMFSH Past Medical History Attestation statement: The following information was validated with the patient. Source: old records reviewed Medical History Blurry vision Physical exam Right ankle sprain Cough Tension headache Mild persistent asthma, uncomplicated Moderate recurrent major depression Vitamin D deficiency Pituitary microadenoma Hand pain, right COVID-19 ruled out Nail fungus Acute carpal tunnel syndrome Surgical History History of umbilical hernia repair History of tubal ligation Family History Family History Father Medical history unknown Mother Uterine cancer Maternal Aunt Hypertension Maternal Grandfather Hypertension Diabetes Social History Social History Housing: Apartment Alcohol intake: current Alcohol intake frequency: holidays/special occasions only Patient Tobacco Use Status: Current everyday Tobacco user Tobacco use type: Cigarette Cigarettes Per Day: 15 e-Cigarette/Vaping Use: Never Used Second Hand Smoke Exposure: No Substance Use Type: Marijuana Advance Directives: No Advance Directives Information Provided: No Patient : No service: No Current occupational status: employed 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 Oriented X3. No acute distress. Eyes: Pupils equal, round and reactive to light. ENT: Pharynx normal. Neck: Normal inspection. CVS: Pulses normal. Respiratory: No respiratory distress. Abdomen: atraumatic Skin: Skin warm and dry. Normal skin color. Normal skin turgor. Extremities: No lower extremity edema. R ankle anterior ttp but no effusion, warmth, redness, 2+ DP pulse, SILT intact Neuro: Oriented X 3. No motor deficit. No sensory deficit. Course Course Course Narrative: This is a rapid medical exam performed by Margarita Catherine NP: Additional HPI, ROS, PE not included below will be deferred to primary provider. Patient is a 48-year-old female presenting with complaint of right ankle pain for the past 5 years. Pain reportedly began after a fracture of the distal fibula. Has seen ortho as well as pain management, states nothing has helped. Specifically requesting repeat xray. Denies new trauma. No swelling, no erythema. Plan: xray Medical Decision Making Medical Decision Making MDM Narrative: 48 yo female with PMH of depression and chronic R ankle pain now here with no change in chronic pain, NV intact, no signs of infection - at this time start on tramadol (no hx of seizures) and DC home with instructions to follow up with PCP. She has no signs of infection or DVT Differential Diagnosis Differential Diagnoses: The differential diagnosis associated with the presentation includes arthralgia Independent Interpretation I performed an independent interpretation of an: Plain X-Ray (no acute change) Radiology Impression Discussion of test interpretation with radiology: I have reviewed the radiologist's reading. External Record Review External record reviewed: Outpatient record Prescription Management I considered prescription management with: Pain Medication Discharge Plan Discharge Clinical Impression: Right ankle pain Qualifiers: Chronicity: chronic Qualified Code(s): M25.571 - Pain in right ankle and joints of right foot Patient Disposition: Home, Self-Care Instructions: Arthralgia (ED) Additional Instructions: no change in xray please follow up with your doctor for further workup return for any worsening symptoms or concerns Prescriptions: New tramadol 50 mg tablet 50 mg PO TID PRN (Reason: pain) Qty: 14 0RF No Action metronidazole 500 mg tablet 500 mg PO BID 7 Days Qty: 14 0RF ondansetron 4 mg tablet,disintegrating 4 mg PO Q8H PRN (Reason: nausea and vomiting) Qty: 7 0RF albuterol sulfate 90 mcg/actuation HFA aerosol inhaler 1 inh inhalation QID PRN (Reason: shortness of breath or wheezing) Qty: 8.5 0RF cholecalciferol (vitamin D3) 50 mcg (2,000 unit) capsule 50 mcg PO DAILY 30 Days Qty: 30 11RF docusate sodium 100 mg capsule 100 mg PO BEDTIME Qty: 90 3RF escitalopram oxalate 10 mg tablet 10 mg PO DAILY 90 Days Qty: 90 2RF gabapentin 100 mg capsule 100 mg PO TID Qty: 90 2RF sennosides [Natural Senna Laxative] 8.6 mg tablet 17.2 mg PO BEDTIME Qty: 60 3RF albuterol sulfate [Ventolin HFA] 90 mcg/actuation HFA aerosol inhaler 2 puff inhalation Q6H PRN (Reason: shortness of breath or wheezing) 30 Days Qty: 18 2RF Stand Alone Forms: Work/School Release Print Language: Surinamese
[2024-03-17] MEDS: traMADoL HCL 50 MG TABLET PO (22:12)
[2024-03-17 22:22] VITALS: BP 139/66; PULSE 83; RESP 16; TEMP 37; O2SAT 97
== END 2024-03-17 22:23 | disposition home or self-care (01) ==
PROVIDERS: Emergency Provider Emergency Medicine; PCP Internal Medicine
DX: M25.571 Pain in right ankle and joints of right foot (principal)
CPT/HCPCS: 73610; 99283; 99284

== ENCOUNTER 2024-04-01 13:55 | Outpatient (AMB) | payer OTHER, SELFPAY ==
--- NOTE | 2024-04-01 13:56 | A.OFFVIS_ITS ---
Vital Signs 04/01/24 13:57 Height 5 ft 6 in Weight 195 lb BMI 31.5 Intake Visit Reasons: vaginal discharge with itching and odor Intake Note: patient was seen in ED 09/2023 for pelvic pain and had ultrasound done College Advisor: College Advisor Present (Jami) Allergies No Known Allergies [No Known Allergies*] Allergy (Verified 04/01/24 13:57) HPI Comments Details: Patient is here today with concerns that she has had lower pelvic pain for the last few weeks and reports a vaginal odor. She has not been sexually active for at least 7 months, she has regular cycles. She admits to history of constipation with abdominal pain. She has not had her annual exam or mammogram for a couple of years. She denies any urinary symptoms. UPT in urine analysis are negative today. [facility] Medical History (Updated 04/01/24 @ 14:25 by Vani Fuentes CNM) Vaginal odor Pelvic pain Blurry vision Physical exam Right ankle sprain Cough Tension headache Mild persistent asthma, uncomplicated Moderate recurrent major depression Vitamin D deficiency Pituitary microadenoma Hand pain, right COVID-19 ruled out Nail fungus Acute carpal tunnel syndrome Surgical History History of umbilical hernia repair History of tubal ligation Family History Father Medical history unknown Mother Uterine cancer Maternal Aunt Hypertension Maternal Grandfather Hypertension Diabetes Social History Housing: Apartment Alcohol intake: current Alcohol intake frequency: holidays/special occasions only Patient Tobacco Use Status: Current everyday Tobacco user Tobacco use type: Cigarette Cigarettes Per Day: 15 e-Cigarette/Vaping Use: Never Used Second Hand Smoke Exposure: No Substance Use Type: Marijuana service: No Current occupational status: employed 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 Current occupational exposures/hazards: No Cognitive needs: No Hearing needs: No Vision needs: Yes Female Reproductive History Menstrual Age of Menarche: 13 Review of Systems Const All systems reviewed & are unremarkable except as noted in HPI and below Physical Exam Vital Signs: BMI result Body Mass Index 31.5 Const General: cooperative, healthy appearing and no acute distress Orientation/consciousness: patient oriented x3 GI Inspection: Yes normal to inspection Palpation (GI): Soft to palpation and Other GI palpation findings present (Nontender) Rectal Exam - Female: visual inspection normal General: Yes bladder normal to palpation External Female Exam: normal appearance of the urethra Speculum Exam - Vagina: normal appearance of the vagina, normal palpation and normal vaginal discharge Speculum Exam - Cervix: normal appearance of the cervix and normal palpation Bimanual exam- vagina & uterus: normal bimanual exam, normal palpation, uterine size normal, bladder normal to palpation, normal palpation, uterine shape normal and non-tender Bimanual Exam- Adnexa, other: normal adnexae Neuro General: patient oriented x3 Results AMB Urinalysis, Automated UA Leukoctes 0 Anny/uL Last Edit by Alexandra Dorado Radhika on 04/01/24 14:11 UA Nitrite Negative Last Edit by Alexandra Dorado [facility] on 04/01/24 14:11 UA Urobilinogen 0 mg/dL Last Edit by Alexandra Dorado [facility] on 04/01/24 14:1 1 UA Protein 0 mg/dL Last Edit by Alexandra Dorado Radhika on 04/01/24 14:11 UA pH 6.5 Last Edit by Alexandra Dorado [facility] on 04/01/24 14:11 UA Blood 0 Jason/uL Last Edit by Alexandra Dorado Radhika on 04/01/24 14:11 UA Specific Ethel 1.015 Last Edit by Alexandra Dorado [facility] on 04/01/24 14:11 UA Ketone Negative Last Edit by Alexandra Dorado Radhika on 04/01/24 14:11 UA Bilirubin 0 mg/dL Last Edit by Alexandra Dorado [facility] on 04/01/24 14:11 UA Glucose 0 mg/dL Last Edit by Alexandra Dorado [facility] on 04/01/24 14:11 AMB Test Urine AMB Test Urine Negative Last Edit by Alexandra Dorado [facility] on 04/01/24 14:32 Results Reviewed Results Reviewed: Laboratory Last Values Urine pH (Auto) 6.5 04/01/24 14:06 Specific Ethel (Auto) 1.015 04/01/24 14:06 Urine Protein (Auto) 0 mg/dL 04/01/24 14:06 Glucose (UA)(Auto) 0 mg/dL 04/01/24 14:06 Urine Ketones (Auto) Negative 04/01/24 14:06 Urine Blood (Auto) 0 Jason/uL 04/01/24 14:06 Urine Nitrite (Auto) Negative 04/01/24 14:06 Urine Bilirubin (Auto) 0 mg/dL 04/01/24 14:06 Urine Urobilinogen (Auto) 0 mg/dL 04/01/24 14:06 Leukocyte Esterase (Auto) 0 Anny/uL 04/01/24 14:06 Assessment & Plan Assessment & Plan (1) Pelvic pain: Code(s): R10.2 - Pelvic and perineal pain Category: Medical (2) Vaginal odor: Code(s): N89.8 - Other specified noninflammatory disorders of vagina Category: Medical Plan Discussed: Plan workup pelvic pain with pelvic ultrasound, GC chlamydia and BV panel today, pelvic rest and warnings reviewed when to go the emergency room for increased pain. Reviewed self-help measures for constipation prevention including increasing fiber in her diet, increasing water intake and exercising regularly, additionally may add MiraLax as directed by manufacture's labeled if needed for constipation until she can get into see her primary care. Schedule mammogram in annual exam. Follow up in person for test results. Insert All questions. This note is constructed using voice recognition software. While every effort has been made to ensure accuracy, date night sitter errors may have been included. Orders: Orders AMB Urinalysis Automated Today R10.2 - Pelvic and perineal pain MM tomosynthesis diagnostic BI Today Z12.31 - Encounter for screening mammogram for malignant neoplasm of breast Bacterial Vaginosis Panel Today N89.8 - Other specified noninflammatory disorders of vagina CT NG by PCR Today N89.8 - Other specified noninflammatory disorders of vagina US pelvic and transvaginal Today R10.2 - Pelvic and perineal pain Coding Level of Care Code Est Pt Level 4 (94746) Diagnoses Pelvic pain R10.2 Vaginal odor N89.8
[2024-04-01 13:57] VITALS: BMI 31.5
== END 2024-04-01 14:28 | disposition home or self-care (01) ==
PROVIDERS: PCP Internal Medicine; Visit Provider Advanced Practice Midwife
DX: R10.2 Pelvic and perineal pain (principal); N89.8 Other specified noninflammatory disorders of vagina; Z32.02 Encounter for pregnancy test, result negative
CPT/HCPCS: 99214

== ENCOUNTER 2024-04-01 13:55 | Outpatient (REF) | payer OTHER, SELFPAY ==
[2024-04-02 03:07] LABS: CT PCR NOT DETECTED (Not Detect.); NG PCR NOT DETECTED (Not Detect.)
[2024-04-02 09:07] LABS: Bacterial Vaginosis PCR NEGATIVE (Negative); Candida Group PCR NOT DETECTED (Not Detect); Candida glab krusei PCR NOT DETECTED (Not Detect); Trichomonas vaginalis PCR NOT DETECTED (Not Detect)
== END 2024-04-01 13:56 | disposition home or self-care (01) ==
LOC: HO.LAB 13:55
PROVIDERS: PCP Internal Medicine; Visit Provider Advanced Practice Midwife
DX: N89.8 Other specified noninflammatory disorders of vagina (principal); R10.2 Pelvic and perineal pain
CPT/HCPCS: 0352U; 81003; 81025; 87491; 87591; 99212; 99459

== ENCOUNTER 2024-04-01 14:25 | Outpatient (REF) | payer OTHER, SELFPAY | END 2024-04-01 14:26 | disposition home or self-care (01) | LOC: HO.LNP 14:25 | PROVIDERS: Visit Provider Advanced Practice Midwife | DX: Z13.89 Encounter for screening for other disorder (principal) ==

== ENCOUNTER 2024-04-24 14:12 | Outpatient (REF) | payer OTHER, SELFPAY ==
--- NOTE | ~2024-04-24 | US_ITS ---
CLINICAL HISTORY: R10.2 - Pelvic and perineal pain US pelvis transabdominal and transvaginal Comparison: None Findings: Transabdominal scanning performed for overall anatomy. Transvaginal scanning performed for additional detail. Anteverted uterus is 7.8 cm length. Normal myometrium. Endometrium 6.0 mm thickness. Right ovary 2.4 x 2.5 x 1.9 cm. Left ovary 2.8 x 2.9 x 2.0 cm. Normal color Doppler of both ovaries. Thin-walled avascular almost certainly benign ovarian cysts are noted measuring 1.1 x 0.8 x 0.6 cm on the right and 2.0 x 1.8 x 1.8 cm on the left. No free fluid. IMPRESSION: 1. No acute findings This document has been electronically signed by: Glynn Timmons MD on 04/25/2024 08:22:19
== END 2024-04-24 14:13 | disposition home or self-care (01) ==
LOC: HO.HMGCX 14:12
PROVIDERS: PCP Internal Medicine; Visit Provider Advanced Practice Midwife
DX: R10.2 Pelvic and perineal pain (principal)
CPT/HCPCS: 76830; 76856

== ENCOUNTER → 2024-04-24 14:39 | Outpatient (BNV) | payer OTHER, SELFPAY | PROVIDERS: PCP Internal Medicine; Visit Provider Specialist | DX: R10.2 Pelvic and perineal pain (principal) | CPT/HCPCS: 76830; 76856 ==

== ENCOUNTER 2024-05-04 13:51 | Outpatient (REF) | payer OTHER, SELFPAY | END 2024-05-04 13:52 | disposition home or self-care (01) | LOC: HO.MAMMO 13:51 | PROVIDERS: PCP Internal Medicine; Visit Provider Internal Medicine | DX: Z13.89 Encounter for screening for other disorder (principal) ==